=== PATIENT | female | born 1985 | race Caucasian/White ===

== ENCOUNTER 2016-06-20 12:59 | Emergency (ER) | payer BC ==
[2016-06-20 13:17] VITALS: RESP 16; TEMP 97.4
[2016-06-20] MEDS ORDERED: SODIUM CHLORIDE 0.9% 1,000 ML IV ONE (14:12)
[2016-06-20] MEDS ORDERED: KETOROLAC 30 MG/ML 1 ML VIAL IVP STA (14:12)
[2016-06-20] MEDS ORDERED: ONDANSETRON 4 MG/2 ML VIAL IVP STA (14:12)
--- NOTE | 2016-06-20 14:17 | ED ---
Abdominal Pain HPI - General Chief Complaint: Abdominal Pain Stated Complaint: Abd pain Time Seen by Provider: 06/20/16 13:53 Source: patient Mode of arrival: ambulatory Limitations: no limitations - History of Present Illness Initial Comments: This is a 30-year-old female with a history of asthma who presents emergency department for lower abdominal pain. She states it started at approximately 11: 00 this morning. She states that she was taking a shower when all of a sudden it started. She states that it feels like a pressure sensation in her lower pelvis. She denies any dysuria or hematuria however states that she has been having difficulty with urinating. She does admit to some vaginal spotting however no discharge. She also admits to some rectal pain however has not been constipated and has not had a bowel movement today. She admits to some nausea and vomiting as well. No fevers or chills. No cough or shortness of breath. She states that she is due to start her period. Last pressure. Was last month on the . 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 She denies any other complaints. - Related Data Previous Rx's Medication Instructions Recorded Acetaminophen with Codeine 1 tab PO Q4H PRN #15 tab 06/20/16 [Tylenol w/codeine #3] Allergies Allergy/AdvReac Type Severity Reaction Status Date / Time amoxicillin trihydrate Allergy Unknown Verified 06/20/16 14:16 [From Augmentin] potassium clavulanate Allergy Unknown Verified 06/20/16 14:16 [From Augmentin] Review of Systems ROS Statement: Those systems with pertinent positive or pertinent negative responses have been documented in the HPI. ROS Other: All systems not noted in ROS Statement are negative. Past Medical History Past Medical History: Asthma History of Any Multi-Drug Resistant Organisms: MRSA Date of last positivie culture/infection: 2008 MDRO Source:: lt arm Past Surgical History: No Surgical Hx Reported Past Psychological History: No Psychological Hx Reported Smoking Status: Never smoker Past Alcohol Use History: Occasional Past Drug Use History: None Reported General Exam - General Exam Comments Initial Comments: Constitutional: Awake alert appears uncomfortable Head: Normocephalic atraumatic Eyes: no conjunctival injection No scleral icterus EOMI Neck: No JVD Supple Heart: Regular rate rhythm normal S1-S2 no murmurs Lungs: Clear to auscultation bilaterally No wheezing No rales Abdomen: Soft nondistended tenderness and bilateral pelvis which seems to be a little bit more on the right Extremities: Non edematous DP pulses intact Radial pulses intact Neuro: A&Ox3 No focal neurologic deficits Psych: Appropriate mood and affect Limitations: no limitations Course Vital Signs 06/20/16 13:13 Temperature 97.4 F L Pulse Rate 118 H Respiratory 16 Rate Blood Pressure 111/69 O2 Sat by Pulse 100 Oximetry Medical Decision Making - Medical Decision Making There is a 22-year-old came in for pelvic pain. Her pain was much improved after Toradol. Blood work was reviewed and unremarkable. Ultrasound showed a left-sided hemorrhagic ovarian cyst. No signs of torsion. At this time the patient can go home and follow-up with her [employer]EL[employer]. She was provided with Tylenol 3 that she can use as needed. She can also use Motrin or Tylenol. I told her that she could follow-up with her OB. If she has worsening or severe patient is return emergency Department for possible evaluation of torsion. Otherwise routine follow-up with [employer]. All questions were answered. - Lab Data Result diagrams: 06/20/16 14:45 06/20/16 14:45 Lab Results 06/20/16 06/20/16 06/20/16 Range/Units 14:45 14:45 14:45 WBC 13.2 H (3.8-10.6) k/uL RBC 4.54 (3.80-5.40) m/uL Hgb 13.8 (11.4-16.0) gm/dL Hct 42.5 (34.0-46.0) % MCV 93.5 (80.0-100.0) fL MCH 30.4 (25.0-35.0) pg MCHC 32.6 (31.0-37.0) g/dL RDW 12.8 (11.5-15.5) % Plt Count 156 (150-450) k/uL Neutrophils % 92 % Lymphocytes % 5 % Monocytes % 2 % Eosinophils % 0 % Basophils % 0 % Neutrophils # 12.2 H (1.3-7.7) k/uL Lymphocytes # 0.6 L (1.0-4.8) k/uL Monocytes # 0.3 (0-1.0) k/uL Eosinophils # 0.0 (0-0.7) k/uL Basophils # 0.0 (0-0.2) k/uL Sodium 141 (137-145) mmol/L Potassium 4.0 (3.5-5.1) mmol/L Chloride 107 (98-107) mmol/L Carbon Dioxide 24 (22-30) mmol/L Anion Gap 10 mmol/L BUN 9 (7-17) mg/dL Creatinine 0.59 (0.52-1.04) mg/dL Est GFR (MDRD) Af Amer >60 (>60 ml/min/1.73 sqM) Est GFR (MDRD) Non-Af >60 (>60 ml/min/1.73 sqM) Glucose 90 (74-99) mg/dL Calcium 9.1 (8.4-10.2) mg/dL Total Bilirubin 0.8 (0.2-1.3) mg/dL AST 18 (14-36) U/L ALT 33 (9-52) U/L Alkaline Phosphatase 53 (38-126) U/L Total Protein 7.1 (6.3-8.2) g/dL Albumin 4.5 (3.5-5.0) g/dL Lipase 56 (23-300) U/L Urine Color Urine Appearance (Clear) Urine pH (5.0-8.0) Ur Specific [place] (1.001-1.035) Urine Protein (Negative) Urine Glucose (UA) (Negative) Urine Ketones (Negative) Urine Blood (Negative) Urine Nitrate (Negative) Urine Bilirubin (Negative) Urine Urobilinogen (<2.0) mg/dL Ur Leukocyte Esterase (Negative) Urine RBC (0-5) /hpf Urine WBC (0-5) /hpf Ur Squamous Epith Cells (0-4) /hpf Urine Bacteria (None) /hpf Urine Mucus (None) /hpf Urine HCG, Qual Not Detected (Not Detectd) 06/20/16 Range/Units 14:45 WBC (3.8-10.6) k/uL RBC (3.80-5.40) m/uL Hgb (11.4-16.0) gm/dL Hct (34.0-46.0) % MCV (80.0-100.0) fL MCH (25.0-35.0) pg MCHC (31.0-37.0) g/dL RDW (11.5-15.5) % Plt Count (150-450) k/uL Neutrophils % % Lymphocytes % % Monocytes % % Eosinophils % % Basophils % % Neutrophils # (1.3-7.7) k/uL Lymphocytes # (1.0-4.8) k/uL Monocytes # (0-1.0) k/uL Eosinophils # (0-0.7) k/uL Basophils # (0-0.2) k/uL Sodium (137-145) mmol/L Potassium (3.5-5.1) mmol/L Chloride (98-107) mmol/L Carbon Dioxide (22-30) mmol/L Anion Gap mmol/L BUN (7-17) mg/dL Creatinine (0.52-1.04) mg/dL Est GFR (MDRD) Af Amer (>60 ml/min/1.73 sqM) Est GFR (MDRD) Non-Af (>60 ml/min/1.73 sqM) Glucose (74-99) mg/dL Calcium (8.4-10.2) mg/dL Total Bilirubin (0.2-1.3) mg/dL AST (14-36) U/L ALT (9-52) U/L Alkaline Phosphatase (38-126) U/L Total Protein (6.3-8.2) g/dL Albumin (3.5-5.0) g/dL Lipase (23-300) U/L Urine Color Yellow Urine Appearance Cloudy H (Clear) Urine pH 5.5 (5.0-8.0) Ur Specific [place] 1.023 (1.001-1.035) Urine Protein Trace H (Negative) Urine Glucose (UA) Negative (Negative) Urine Ketones 2+ H (Negative) Urine Blood Small H (Negative) Urine Nitrate Negative (Negative) Urine Bilirubin Negative (Negative) Urine Urobilinogen <2.0 (<2.0) mg/dL Ur Leukocyte Esterase Trace H (Negative) Urine RBC 3 (0-5) /hpf Urine WBC 6 H (0-5) /hpf Ur Squamous Epith Cells 4 (0-4) /hpf Urine Bacteria Rare H (None) /hpf Urine Mucus Many H (None) /hpf Urine HCG, Qual (Not Detectd) Disposition Clinical Impression: Ovarian cyst Disposition: HOME SELF-CARE Condition: Stable Instructions: Ovarian Cyst (ED) Prescriptions: Acetaminophen with Codeine [Tylenol w/codeine #3] 1 tab PO Q4H PRN #15 tab PRN Reason: Pain Referrals: Lj Howard MD [Primary Care Provider] - 1-2 days Carolyn Jamil DO [Doctor of Osteopathic Medicine] - 1-2 days
[2016-06-20 15:00] LABS: Basophils % (A) 0 %; CH 31.8; CHCM 34.1; Eosinophils % (A) 0 %; HCT 42.5 % (34.0-46.0); HDW 2.44; HGB 13.8 gm/dL (11.4-16.0); Luc # (Auto) 0.04; Luc % (Auto) 0; Lymphocytes # (A) 0.6 k/uL (1.0-4.8); Lymphocytes % (A) 5 %; MCH 30.4 pg (25.0-35.0); MCHC 32.6 g/dL (31.0-37.0); MCV 93.5 fL (80.0-100.0); Mean Platelet Volume 7.6; Monocytes # (A) 0.3 k/uL (0-1.0); Monocytes % (A) 2 %; Neutrophils # (A) 12.2 k/uL (1.3-7.7); Neutrophils % (A) 92 %; RBC 4.54 m/uL (3.80-5.40); RDW 12.8 % (11.5-15.5); WBC 13.2 k/uL (3.8-10.6); WBC (Perox) 13.46
[2016-06-20 15:04] LABS: Appearance,Urine Cloudy (Clear); Bacteria,Urine Rare /hpf; Bilirubin,Urine Negative (Negative); Glucose,Urine (UA) Negative (Negative); Ketones,Urine 2+ (Negative); Leukocyte Esterase,Urine Trace (Negative); Mucus,Urine Many /hpf; Nitrite,Urine Negative (Negative); PH, Urine 5.5 (5.0-8.0); Particle Count 20890; Protein,Urine Trace (Negative); RBC,Urine 3 /hpf (0-5); Specific Gravity,Urine 1.023 (1.001-1.035); Squamous Epithelial Cell,Urine 4 /hpf (0-4); UA Billing (MACRO vs. MICRO) MICRO; Urobilinogen,Urine <2.0 mg/dL (<2.0); WBC,Urine 6 /hpf (0-5)
[2016-06-20 15:09] LABS: ALT 33 U/L (9-52); AST 18 U/L (14-36); Alkaline Phosphatase 53 U/L (38-126); Anion Gap 10 mmol/L; Blood Urea Nitrogen 9 mg/dL (7-17); Calcium 9.1 mg/dL (8.4-10.2); Carbon Dioxide 24 mmol/L (22-30); Chloride 107 mmol/L (98-107); Glucose 90 mg/dL (74-99); Non-African American GFR(MDRD) >60 (>60 ml/min/1.73 sqM); Sodium 141 mmol/L (137-145); Total Bilirubin 0.8 mg/dL (0.2-1.3); Total Protein 7.1 g/dL (6.3-8.2)
--- NOTE | 2016-06-20 15:44 | US ---
EXAMINATION TYPE: US transvaginal DATE OF EXAM: 06/20/2016 3:21 PM COMPARISON: NONE CLINICAL HISTORY: Pelvic pain and cramping today; patient stated that LMP started today TECHNIQUE: Transvaginal (TV) Date of LMP: 06/20/2016 EXAM MEASUREMENTS: Uterus: 10.0 x 7.1 x 5.3cm Endometrial Stripe: upper right endometrium = 0.6cm and upper left endometrium 0.9cm Right Ovary: 3.2 x 3.0 x 1.9cm Left Ovary: 6.0 x 3.0 x 3.0cm FINDINGS: 1. Uterus: Anteverted; 2. Endometrium: arcuate appearance to upper endometrium; multiple small cysts in endometrium ~ 0.2cm 3. Right Ovary: multiple small follicles 4. Left Ovary: abnormally enlarged ovary with multiple follicles with largest as complex cyst (possi ble involuting hemorrhagic ovarian cyst = 3.5 x 2.5 x 2.4cm) and another simple cyst = 2.5 x 2.3 x 2. 2cm. Spectral, color and waveform Doppler imaging shows good arterial and venous flow within the ovaries ; there is no evidence for ovarian torsion. 5. Bilateral Adnexa: within normal limits 6. Posterior cul-de-sac: within normal limits IMPRESSION: Ovarian torsion is not evident. Small cystic foci within the endometrium are indeterminat e. Possible hemorrhagic cyst left ovary. Follow-up as indicated.
[2016-06-20 16:03] VITALS: BP 101/63; PULSE 84
== END 2016-06-20 16:16 | disposition home or self-care (01) ==
LOC: EC 12:59
DX: N83.202 Unspecified ovarian cyst, left side (principal); Z88.0 Allergy status to penicillin
CPT/HCPCS: 99284; 96361 ×2; 96375; 96374; 36415; 80053; 83690; 85025; 81001; 81025; 93975; 76830; J2405; J1885

== ENCOUNTER → 2016-08-17 | Outpatient (CLI) | payer BC ==
--- NOTE | 2016-08-18 08:21 | US ---
EXAMINATION TYPE: US pelvis complete transvag DATE OF EXAM: 08/17/2016 4:05 PM COMPARISON: Previous study dated 06/20/2016 CLINICAL HISTORY: N83.20 Previous ovarian cysts. TECHNIQUE: Transvaginal (TV) and Transabdominal (TA) Date of LMP: 07/21/2016 EXAM MEASUREMENTS: Uterus: 9.2 x 4.6 x 6.3 cm Endometrial Stripe: 1.6 cm Right Ovary: 2.6 x 2.8 x 3.2 cm Left Ovary: 5.0 x 3.3 x 4.2 cm TECHNOLOGIST IMPRESSION: Left ovary show cyst 2.5 x 2.1 x 2.4 cm lower margin; 2.7 x 2.6 x 2.7 solid structure upper margin, hemorrhagic cyst vs solid, no vascularity seen with color flow 1. Uterus: Anteverted small amount of fluid in lower segment 2. Endometrium: wnl for secretory phase 3. Right Ovary: follicles 4. Left Ovary: pathology as noted in impression 5. Bilateral Adnexa: small amount of free fluid adjacent to left ovary 6. Posterior cul-de-sac: no free fluid The vascularity of the right ovary was not assessed. IMPRESSION: 1. 2.5 CM SIMPLE APPEARING LEFT OVARIAN CYST. 2. PROBABLE HEMORRHAGIC CYST INVOLVING THE LEFT OVARY.
== END | disposition home or self-care (01) ==
LOC: RADUSWWP 15:31
PROVIDERS: ATTEND Obstetrics & Gynecology
DX: N83.202 Unspecified ovarian cyst, left side (principal)
CPT/HCPCS: 76830; 76856

== ENCOUNTER → 2017-03-09 | Outpatient (CLI) | payer BC ==
[2017-03-09 13:29] LABS: CH 31.8; CHCM 32.8; HCT 43.7 % (34.0-46.0); HDW 2.33; HGB 14.5 gm/dL (11.4-16.0); MCH 32.4 pg (25.0-35.0); MCHC 33.3 g/dL (31.0-37.0); MCV 97.3 fL (80.0-100.0); Mean Platelet Volume 6.8; RBC 4.49 m/uL (3.80-5.40); RDW 12.6 % (11.5-15.5); WBC 7.7 k/uL (3.8-10.6)
[2017-03-09 15:34] LABS: Glucose 91 mg/dL (74-99); Non-African American GFR(MDRD) >60 (>60 ml/min/1.73 sqM)
[2017-03-09 18:48] LABS: Treponemal Ab Non-Reactive (Non-Reactive)
== END | disposition home or self-care (01) ==
LOC: LABWHC1 12:53
PROVIDERS: ATTEND Obstetrics & Gynecology
DX: Z34.01 Encounter for supervision of normal first pregnancy, first trimester (principal)
CPT/HCPCS: 36415; 82565; 82947; 84702; 85027; 86762; 86780; 86850; 86900; 86901; 87340; 87390

== ENCOUNTER → 2017-03-14 | Outpatient (CLI) | payer BC | END | disposition home or self-care (01) | LOC: LABWHC1 12:34 | PROVIDERS: ATTEND Obstetrics & Gynecology | DX: Z34.00 Encounter for supervision of normal first pregnancy, unspecified trimester (principal); Z3A.00 Weeks of gestation of pregnancy not specified | CPT/HCPCS: 36415; 84702 ==

== ENCOUNTER → 2017-03-27 | Outpatient (CLI) | payer BC ==
--- NOTE | 2017-03-27 14:41 | US ---
EXAMINATION TYPE: US OB <= 14 wk fetus DATE OF EXAM: 03/27/2017 COMPARISON: NONE CLINICAL HISTORY: F/U to abnormal ultrasound Z36; Vaginal discharge x 2 days; EXAM PERFORMED: Transvaginal (TV) and Transabdominal (TA) EXAM MEASUREMENTS: GESTATIONAL AGE / DATING Physician Established: not established Dates by LMP: (10 weeks/1 day) EDC: 10/20/2017 Dates by First Scan: No previous. This is first scan Dates by Current Scan for: (5 weeks/6 days) EDC: No cardiac activity seen MATERNAL ANATOMY Uterus: 10.0 x 6.2 x 5.5 Right Ovary: 3.4 x 3.2 x 2.2cm TA US Left Ovary: 3.4 x 2.9 x 2.4cm TA US Post CDS / Adnexa: wnl Presence of free fluid: no Presence of corpus luteal cyst: in either ovary as color flow is noted around each ovarian cyst: righ t ovarian cyst = 1.9 x 1.8 x 1.5cm abd left hypoechoic ovarian cyst = 2.1 x 1.9 x 1.5cm Presence of subchorionic bleed: no GESTATION / SURVEY CRL: 0.3cm (5 weeks/6 days) Yolk Sac (normal less than 6mm): 2.5mm and appears solid Heart Rate: none detected by color flow, M Mode or Power Doppler IUP: non viable IUP Date of LMP: 01/13/2017 Beta HcG (if available): NA Centrally in the uterus there is oval anechoic area measuring approximately 12 x 18 x 13 mm felt to r eflect gestational sac. There is 3 mm round homogeneous structure felt to reflect abnormal yolk sac. pole is identified. heart tones cannot be detected despite several attempts. No free flui d is seen in pelvis. Both ovaries are identified. There is 1.9 cm simple appearing cyst in right ovary seen. There is 2.1 cm simple appearing cyst in left ovary identified. IMPRESSION: Findings are suspicious for ongoing spontaneous given patient's last known menstrual period however too early to visualize live intrauterine is in differential based on size of pole. Ectopic is not entirely excluded. Serial beta hCG and ultrasound follow-up is advised .
== END | disposition home or self-care (01) ==
LOC: RADUSWWP 13:33
PROVIDERS: ATTEND Obstetrics & Gynecology
DX: Z34.00 Encounter for supervision of normal first pregnancy, unspecified trimester (principal); Z3A.00 Weeks of gestation of pregnancy not specified
CPT/HCPCS: 36415; 76801; 76817; 84702

== ENCOUNTER 2018-01-27 02:25 | Emergency (ER) | payer BC ==
[2018-01-27 02:32] VITALS: TEMP 97.8
[2018-01-27 03:14] LABS: Appearance,Urine Cloudy (Clear); Bacteria,Urine Few /hpf; Bilirubin,Urine Negative (Negative); Blood,Urine Trace (Negative); Color,Urine Yellow; Glucose,Urine (UA) Negative (Negative); Ketones,Urine Negative (Negative); Leukocyte Esterase,Urine Small (Negative); Mucus,Urine Few /hpf; Nitrite,Urine Negative (Negative); Protein,Urine Negative (Negative); RBC,Urine 1 /hpf (0-5); Specific Gravity,Urine 1.016 (1.001-1.035); Squamous Epithelial Cell,Urine 5 /hpf (0-4); Urobilinogen,Urine <2.0 mg/dL (<2.0); WBC,Urine 4 /hpf (0-5)
--- NOTE | 2018-01-27 03:21 | ED ---
General Adult HPI - General Source: patient, RN notes reviewed Mode of arrival: ambulatory Limitations: no limitations <Arcadio Crisostomo P - Last Filed: 01/27/18 03:40> <Savana Pereira P - Last Filed: 01/27/18 06:56> - General Chief complaint: Urogenital Stated complaint: UTI Time Seen by Provider: 01/27/18 02:36 - History of Present Illness Initial comments: 32-year-old female presents to the emergency department for a chief complaint of dysuria and urinary frequency 2 weeks. Patient just found out she was 2 days ago. Patient describes the pain as a burning sensation when urinating. Patient states symptoms started 2 weeks ago when she saw her primary care provider. She states she was put on Macrobid which did improve her symptoms for about 4 days. However during the last 3 days of Macrobid symptoms returned. She states she finished the Macrobid about one week ago and symptoms have been worsening over the past 2 days. Patient denies any fevers or chills at home. Patient denies any back pain. Patient has had multiple urinary tract infections in the past. Patient denies any concern for sexual transmitted diseases or vaginal discharge. Patient denies any pelvic pain. Patient denies any vaginal bleeding. Patient has no other complaints at this time including shortness of breath, chest pain, abdominal pain, nausea or vomiting, headache, or visual changes. (Arcadio Crisostomo) - Related Data Home Medications Medication Instructions Recorded Confirmed Abg-Juwg-Ohmql Acid 1 cap PO DAILY 04/01/17 04/01/17 [-U Capsule (formulary)] Nitrofurantoin Monohyd/M-Cryst 100 mg PO Q12HR 01/27/18 01/27/18 [Macrobid] Allergies Allergy/AdvReac Type Severity Reaction Status Date / Time amoxicillin trihydrate Allergy SYNCOPE Verified 01/27/18 02:32 [From Augmentin] potassium clavulanate Allergy SYNCOPE Verified 01/27/18 02:32 [From Augmentin] Review of Systems ROS Other: All systems not noted in ROS Statement are negative. <Arcadio Crisostomo P - Last Filed: 01/27/18 03:40> ROS Other: All systems not noted in ROS Statement are negative. <Savana Pereira P - Last Filed: 01/27/18 06:56> ROS Statement: Those systems with pertinent positive or pertinent negative responses have been documented in the HPI. Past Medical History Past Medical History: Asthma History of Any Multi-Drug Resistant Organisms: MRSA Date of last positivie culture/infection: 2008 MDRO Source:: lt arm Past Surgical History: No Surgical Hx Reported Past Psychological History: No Psychological Hx Reported Smoking Status: Never smoker Past Alcohol Use History: None Reported, Occasional Past Drug Use History: None Reported <Arcadio Crisostomo P - Last Filed: 01/27/18 03:40> General Exam Limitations: no limitations General appearance: alert, in no apparent distress Head exam: Present: atraumatic, normocephalic, normal inspection Eye exam: Present: normal appearance. Absent: scleral icterus, conjunctival injection ENT exam: Present: normal exam, mucous membranes moist Neck exam: Present: normal inspection, full ROM. Absent: tenderness, meningismus, lymphadenopathy Respiratory exam: Present: normal lung sounds bilaterally. Absent: respiratory distress, wheezes, rales, rhonchi, stridor Cardiovascular Exam: Present: regular rate, normal rhythm, normal heart sounds. Absent: systolic murmur, diastolic murmur, rubs, gallop, clicks GI/Abdominal exam: Present: soft, normal bowel sounds. Absent: distended, tenderness, guarding, rebound, rigid Back exam: Absent: CVA tenderness (R), CVA tenderness (L) Neurological exam: Present: alert, oriented X3, CN II-XII intact Psychiatric exam: Present: normal affect, normal mood <Arcadio Crisostomo P - Last Filed: 01/27/18 03:40> Vital Signs 01/27/18 01/27/18 02:27 03:52 Temperature 97.8 F Pulse Rate 85 75 Respiratory 16 18 Rate Blood Pressure 138/94 123/67 O2 Sat by Pulse 99 98 Oximetry Medical Decision Making <Arcadio Crisostomo P - Last Filed: 01/27/18 03:40> <Savana Pereira P - Last Filed: 01/27/18 06:56> - Medical Decision Making 32-year-old female presents to the emergency department for a chief complaint of dysuria and urinary frequency 2 weeks. Patient states she found out she was 2 days ago. She states she had 3 positive tests at home and a negative test at work. Patient was previously on Macrobid but symptoms continued. Patient saw her primary care provider today who did not want to switch her antibiotic until they had the urine culture back. Patient states that she came to the emergency department for an antibiotic because her symptoms are consistent with past urinary tract infections. Patient denies fevers or chills. Patient denies abdominal pain. Patient denies any vaginal bleeding or discharge. Vitals within normal limits here in the emergency department and patient is afebrile. I did offer pelvic exam as sexually transmitted diseases can present as dysuria. Patient refused and states she gets checked for STDs every year and has one monogamous partner. On exam patient has no abdominal tenderness including in the pelvic area. She is sitting up in bed alert and cooperative. Urinalysis does not show evidence of infection. Urine will be cultured. Patient did have a negative hCG here. Patient agreed to a quantitative hCG and will call for results. Patient agrees. 6 symptoms of cystitis. Educated to decrease caffeine intake as well as decrease spicy food intake. She will increase fluid intake. Discussed receiving culture results before antibiotics. She will follow up with primary care in 1-2 days and will return to the emergency Department if she has any worsening symptoms or develops fevers. (Arcadio Crisostomo) I personally saw and evaluated the patient, I discussed with her urinalysis is not consistent with urinary tract infection, however a urine culture was obtained. I recommended the patient avoid foods that can cause cystitis including spicy foods or caffeine. I also recommended that the patient drink plenty of fluid to make sure that dehydration is contributing to her symptoms. In addition her urine test was negative. I advised the patient that we can obtain a blood sample for beta-hCG, however I don't feel there is any indication her staying in the emergency department awaiting the results as it will not change her disposition. Patient called the emergency department back approximately 90 minutes after discharge, I discussed with her that her beta hCG was mildly elevated, however this needs to be trended by her primary care or OB to ensure that it is raising appropriately in early . Patient expressed understanding. (Savana Pereira) - Lab Data Lab Results 01/27/18 01/27/18 01/27/18 Range/Units 03:00 03:00 03:48 HCG, Quant 8.1 mIU/mL Urine Color Yellow Urine Appearance Cloudy H (Clear) Urine pH 5.0 (5.0-8.0) Ur Specific [place] 1.016 (1.001-1.035) Urine Protein Negative (Negative) Urine Glucose (UA) Negative (Negative) Urine Ketones Negative (Negative) Urine Blood Trace H (Negative) Urine Nitrite Negative (Negative) Urine Bilirubin Negative (Negative) Urine Urobilinogen <2.0 (<2.0) mg/dL Ur Leukocyte Esterase Small H (Negative) Urine RBC 1 (0-5) /hpf Urine WBC 4 (0-5) /hpf Ur Squamous Epith Cells 5 H (0-4) /hpf Urine Bacteria Few H (None) /hpf Urine Mucus Few H (None) /hpf Urine HCG, Qual Not Detected (Not Detectd) Disposition Is patient prescribed a controlled substance at d/c from ED?: No Time of Disposition: 03:39 <Arcadio Crisostomo P - Last Filed: 01/27/18 03:40> <Savana Pereira P - Last Filed: 01/27/18 06:56> Clinical Impression: Cystitis Disposition: HOME SELF-CARE Condition: Good Instructions: Urinary Tract Infection in Women (ED), Interstitial Cystitis (ED) Additional Instructions: Please await culture results of urine. Please follow-up with primary care in 1- 2 days. Return to the emergency department if you have any worsening symptoms, abdominal pain, or fevers Referrals: Artem Khoury MD [STAFF PHYSICIAN] - 1-2 days
[2018-01-27 03:53] VITALS: BP 123/67; PULSE 75; RESP 18
== END 2018-01-27 03:53 | disposition home or self-care (01) ==
LOC: EC 02:25
DX: N30.90 Cystitis, unspecified without hematuria (principal); Z86.14 Personal history of Methicillin resistant Staphylococcus aureus infection; Z53.29 Procedure and treatment not carried out because of patient's decision for other reasons; Z88.0 Allergy status to penicillin; Z87.440 Personal history of urinary (tract) infections
CPT/HCPCS: 36415; 81001; 81025; 84702; 87086; 99283

== ENCOUNTER 2018-01-29 17:28 | Emergency (ER) | payer BC ==
[2018-01-29] MEDS ORDERED: Rhogam IMMUNE GLOBULIN 1,500 UNIT/1 ML IM ONE (18:01)
--- NOTE | 2018-01-29 18:31 | ED ---
Female Urogenital HPI - General Chief complaint: Vaginal Bleeding Stated complaint: Poss miscarriage Time Seen by Provider: 01/29/18 17:46 Source: patient, RN notes reviewed Mode of arrival: ambulatory Limitations: no limitations - History of Present Illness Initial comments: This is a 32-year-old G2PO female who presents to the emergency department with chief complaint of possible miscarriage. She states that last she had a positive test. She states that her blood type is A-. Patient states that she was seen here yesterday and was diagnosed with a urinary tract infection. A serum hCG was drawn and it was at 8.1. Patient states that last evening she began to have vaginal bleeding. She states that today the vaginal bleeding has increased and she is passing clots. She also admits to lower abdominal cramping. Patient states that she established care with Dr. Wren last Sunday after finding out she was . She states that she contacted Dr. Wren this evening and was told to come to the emergency department for a RhoGAM shot as well as another serum hCG level. Patient does have an appointment scheduled for 8 AM tomorrow morning [address] Dr. Wren. Patient has not yet had an ultrasound performed. She denies any recent fevers or chills, chest pain or shortness of breath, nausea or vomiting, diarrhea or constipation. LMP was 12/22/2017. - Related Data Home Medications Medication Instructions Recorded Confirmed Voi-Ujyi-Lgmyr Acid 1 cap PO HS 04/01/17 01/29/18 [-U Capsule (formulary)] Ibuprofen [Motrin Ib] 400 mg PO Q6HR PRN 01/29/18 01/29/18 Allergies Allergy/AdvReac Type Severity Reaction Status Date / Time amoxicillin trihydrate AdvReac SYNCOPE Verified 01/29/18 17:52 [From Augmentin] potassium clavulanate AdvReac SYNCOPE Verified 01/29/18 17:52 [From Augmentin] Review of Systems ROS Statement: Those systems with pertinent positive or pertinent negative responses have been documented in the HPI. ROS Other: All systems not noted in ROS Statement are negative. Past Medical History Past Medical History: Asthma History of Any Multi-Drug Resistant Organisms: MRSA Date of last positivie culture/infection: 2008 MDRO Source:: lt arm Past Surgical History: No Surgical Hx Reported Past Psychological History: No Psychological Hx Reported Smoking Status: Never smoker Past Alcohol Use History: None Reported Past Drug Use History: None Reported General Exam - General Exam Comments Initial Comments: General: Awake and alert, well-developed; in no apparent distress. HEENT: Head atraumatic, normocephalic. Pupils are equal, round and reactive to light. Extraocular movements intact. Oropharynx moist without erythema or exudate. Neck: Supple. Normal ROM. Cardiovascular: Regular rate and rhythm. No murmurs, rubs or gallops. Chest symmetrical. Respiratory: Lungs clear to auscultation bilaterally. No wheezes, rales or rhonchi. Normal respiratory effort with no use of accessory muscles. Abdomen: Soft, non-tender, non-distended. No rigidity, rebound or guarding. Normal bowel sounds in all 4 quadrants. Musculoskeletal: Normal ROM, no tenderness bilateral upper and lower extremities. Ambulating normally. Skin: Wilder, warm and dry without rashes or lesions. Neurological: Alert and oriented x3. CN II-XII grossly intact. Speech is fluent and answers are appropriate. No focal neuro deficits. Psychiatric: Normal mood and affect. No overt signs of depression or anxiety noted. Limitations: no limitations Course Vital Signs 01/29/18 01/29/18 17:37 19:44 Temperature 98.2 F 98.8 F Pulse Rate 83 85 Respiratory 18 16 Rate Blood Pressure 120/78 112/62 O2 Sat by Pulse 99 98 Oximetry Medical Decision Making - Medical Decision Making This is a 32-year-old female who presents to the emergency department with chief complaint of vaginal bleeding. Patient reports a positive test last . She states that last evening she began to have vaginal bleeding and today has been passing clots and having lower abdominal cramping. Patient states that she called Dr. Wren's office and it was recommended that she come to the emergency department for a repeat serum hCG and Rhogam as patient does have A- blood type. CBC and CMP are unremarkable. Serum hcg <2.4. Decreased from 8.1 yesterday. Patient received Rhogam here in the ER. U/S revealed no evidence of IUP or ectopic . Patient is to follow up with Dr. Wren tomorrow as scheduled. She is in agreement and voices understanding. Her vital signs have been stable and she is in no acute distress. Patient will be discharged home at this time. All questions answered. - Lab Data Result diagrams: 01/29/18 18:37 01/29/18 18:37 Lab Results 01/29/18 01/29/18 01/29/18 Range/Units 18:37 18:37 18:37 WBC 10.4 (3.8-10.6) k/uL RBC 4.73 (3.80-5.40) m/uL Hgb 14.9 (11.4-16.0) gm/dL Hct 44.8 (34.0-46.0) % MCV 94.8 (80.0-100.0) fL MCH 31.5 (25.0-35.0) pg MCHC 33.3 (31.0-37.0) g/dL RDW 12.8 (11.5-15.5) % Plt Count 186 (150-450) k/uL Neutrophils % 73 % Lymphocytes % 19 % Monocytes % 5 % Eosinophils % 2 % Basophils % 0 % Neutrophils # 7.5 (1.3-7.7) k/uL Lymphocytes # 1.9 (1.0-4.8) k/uL Monocytes # 0.5 (0-1.0) k/uL Eosinophils # 0.2 (0-0.7) k/uL Basophils # 0.0 (0-0.2) k/uL Sodium 143 (137-145) mmol/L Potassium 3.9 (3.5-5.1) mmol/L Chloride 106 (98-107) mmol/L Carbon Dioxide 25 (22-30) mmol/L Anion Gap 12 mmol/L BUN 9 (7-17) mg/dL Creatinine 0.56 (0.52-1.04) mg/dL Est GFR (CKD-EPI)AfAm >90 (>60 ml/min/1.73 sqM) Est GFR (CKD-EPI)NonAf >90 (>60 ml/min/1.73 sqM) Glucose 81 (74-99) mg/dL Calcium 9.6 (8.4-10.2) mg/dL Total Bilirubin 0.4 (0.2-1.3) mg/dL AST 18 (14-36) U/L ALT 22 (9-52) U/L Alkaline Phosphatase 40 (38-126) U/L Total Protein 7.5 (6.3-8.2) g/dL Albumin 4.6 (3.5-5.0) g/dL HCG, Quant <2.4 mIU/mL Blood Type A Negative Blood Type Recheck No Antibody Screen NEGATIVE Spec Expiration Date 02/01/2018 4997 - Radiology Data Radiology results: report reviewed Transvaginal ultrasound impression: No intrauterine at this time. Current differential considerations in the setting of a positive test could normal early , failed , and nonvisualized ectopic. Disposition Clinical Impression: Miscarriage Disposition: HOME SELF-CARE Condition: Good Instructions: Miscarriage (ED) Additional Instructions: Please follow up with Dr. Wren tomorrow morning as scheduled. Please follow up with primary care provider within 1-2 days. Return to emergency department if symptoms should worsen or any concerns arise. Is patient prescribed a controlled substance at d/c from ED?: No Referrals: None,Stated [Primary Care Provider] - 1-2 days Time of Disposition: 20:53
[2018-01-29 19:18] LABS: Basophils % (A) 0 %; Eosinophils # (A) 0.2 k/uL (0-0.7); Eosinophils % (A) 2 %; HCT 44.8 % (34.0-46.0); HGB 14.9 gm/dL (11.4-16.0); Lymphocytes # (A) 1.9 k/uL (1.0-4.8); Lymphocytes % (A) 19 %; MCH 31.5 pg (25.0-35.0); MCHC 33.3 g/dL (31.0-37.0); MCV 94.8 fL (80.0-100.0); Mean Platelet Volume 7.1; Monocytes # (A) 0.5 k/uL (0-1.0); Monocytes % (A) 5 %; Neutrophils # (A) 7.5 k/uL (1.3-7.7); Neutrophils % (A) 73 %; Platelet Count 186 k/uL (150-450); RBC 4.73 m/uL (3.80-5.40); RDW 12.8 % (11.5-15.5); WBC 10.4 k/uL (3.8-10.6)
[2018-01-29 19:29] LABS: ALT 22 U/L (9-52); AST 18 U/L (14-36); Albumin 4.6 g/dL (3.5-5.0); Alkaline Phosphatase 40 U/L (38-126); Anion Gap 12 mmol/L; Blood Urea Nitrogen 9 mg/dL (7-17); Calcium 9.6 mg/dL (8.4-10.2); Carbon Dioxide 25 mmol/L (22-30); Chloride 106 mmol/L (98-107); Glucose 81 mg/dL (74-99); Potassium 3.9 mmol/L (3.5-5.1); Sodium 143 mmol/L (137-145); Total Bilirubin 0.4 mg/dL (0.2-1.3); Total Protein 7.5 g/dL (6.3-8.2)
[2018-01-29 19:44] LABS: HCG,Quantitative Serum <2.4 mIU/mL
[2018-01-29 19:45] VITALS: RESP 16
--- NOTE | 2018-01-29 20:49 | US ---
EXAMINATION TYPE: Ultrasound OB <= 14 weeks transvaginal DATE OF EXAM: 09/04/17 COMPARISON: NONE CLINICAL HISTORY: 32-year-old female vaginal bleeding. Heavy bleeding EXAM PERFORMED: Transvaginal (TV) and Transabdominal (TA) FINDINGS: EXAM MEASUREMENTS: GESTATIONAL AGE / DATING Physician Established: Not yet established Dates by LMP: (5 weeks/3 days) EDC: 09/28/2018 Dates by First Scan: No previous this is first scan Dates by Current Scan for: No IUP seen at this time MATERNAL ANATOMY Uterus: 8.7 x 4.6 x 5.6 cm Endometrial stripe: 1.2 mm Right Ovary: 3.5 x 2.4 x 2.6 cm with follicular change. Left Ovary: 3.9 x 3.0 x 2.8 cm with a 1.7 cm hypoechoic lesion within, possible hemorrhagic cyst or c orpus luteum. Post CDS / Adnexa: wnl Presence of free fluid: no Presence of corpus luteal cyst: possible left ovary Presence of subchorionic bleed: no GESTATION / SURVEY IUP: No IUP seen at this time Beta HcG (if available): Not available at this time No IUP seen at this time. Hypoechoic area left ovary measuring 1.7 x 1.3 x 1.2 cm. IMPRESSION: No intrauterine seen at this time. Correlate with beta hCG values. A beta-hCG of 2000 would be the threshold for visualization of an intrauterine on transvaginal scanning. Current di fferential considerations in the setting of a positive test include normal early , failed , and nonvisualized ectopic. Follow-up ultrasound to ensure the appearance of a norm al .
[2018-01-29 21:08] VITALS: BP 115/70; PULSE 72; TEMP 98.2
== END 2018-01-29 21:12 | disposition home or self-care (01) ==
LOC: EC 17:28
DX: O03.9 Complete or unspecified spontaneous abortion without complication (principal); Z86.14 Personal history of Methicillin resistant Staphylococcus aureus infection; Z88.0 Allergy status to penicillin
CPT/HCPCS: 36415; 86900; 86901; 80053; 85025; 86850; 84702; 76801; 76817; 99284; 96372; J2791

== ENCOUNTER → 2018-08-12 | Outpatient (CLI) | payer BC ==
--- NOTE | 2018-08-12 10:53 | XR ---
EXAMINATION TYPE: XR IVP DATE OF EXAM: 08/12/2018 COMPARISON: NONE HISTORY: Z87.440 Personal history of urinary (tract) infect TECHNIQUE: Following intravenous administration of KXP324/100cc , multiple spot images are obtained. The preliminary film of the abdomen reveals no significant abnormality. No definite nephrolithiasis i s seen. Following intravenous administration of contrast material, sequential films of the abdomen were obtai aden. There is prompt and symmetrical excretion of the contrast by both kidneys which demonstrate nor mal size and configuration. The collecting systems and visualized portions of the ureters reveal no abnormality. There is no mass or obstruction visualized. There is gradual accumulation of contrast material in the urinary bladder showing no gross abnormality. The post-voiding film shows minimal re sidual contrast in the collecting systems and urinary bladder. IMPRESSION: Essentially normal IVP , no significant finding is seen to account for patient's clinical symptoms
== END | disposition home or self-care (01) ==
LOC: RADFLMAIN 08:46
PROVIDERS: ATTEND Family Medicine
DX: Z09 Encounter for follow-up examination after completed treatment for conditions other than malignant neoplasm (principal); Z87.440 Personal history of urinary (tract) infections
CPT/HCPCS: 74400; Q9967

== ENCOUNTER 2018-12-01 22:20 | Emergency (ER) | payer BC ==
[2018-12-01] MEDS ORDERED: ACETAMINOPHEN TAB 500 MG TAB PO STA (22:50)
[2018-12-01] MEDS ORDERED: IBUPROFEN 600 MG TAB PO STA (22:50)
[2018-12-01 23:48] LABS: Appearance,Urine Clear (Clear); Bilirubin,Urine Negative (Negative); Blood,Urine Negative (Negative); Color,Urine Light Yellow; Glucose,Urine (UA) Negative (Negative); Ketones,Urine Negative (Negative); Leukocyte Esterase,Urine Negative (Negative); Nitrite,Urine Negative (Negative); Protein,Urine Negative (Negative); Specific Gravity,Urine 1.003 (1.001-1.035); Urobilinogen,Urine <2.0 mg/dL (<2.0)
[2018-12-01] MEDS: SODIUM CHLORIDE 0.9% 500 ML 500 ML IV SCH (23:53)
[2018-12-02 00:07] LABS: African American GFR (CKD) >90 (>60 ml/min/1.73 sqM); Albumin 4.1 g/dL (3.5-5.0); Anion Gap 11 mmol/L; Blood Urea Nitrogen 5 mg/dL (7-17); Calcium 8.6 mg/dL (8.4-10.2); Carbon Dioxide 22 mmol/L (22-30); Chloride 106 mmol/L (98-107); Glucose 101 mg/dL (74-99); Sodium 139 mmol/L (137-145); Total Bilirubin 0.6 mg/dL (0.2-1.3); Total Protein 6.8 g/dL (6.3-8.2)
[2018-12-02 00:10] LABS: HCT 40.5 % (34.0-46.0); HGB 13.6 gm/dL (11.4-16.0); MCH 30.7 pg (25.0-35.0); MCHC 33.7 g/dL (31.0-37.0); MCV 91.1 fL (80.0-100.0); Mean Platelet Volume 7.7; RBC 4.44 m/uL (3.80-5.40); RDW 13.7 % (11.5-15.5); WBC 4.7 k/uL (3.8-10.6)
[2018-12-02 00:14] LABS: ALT 17 U/L (9-52); AST 30 U/L (14-36); Alkaline Phosphatase 48 U/L (38-126); Potassium 3.6 mmol/L (3.5-5.1)
[2018-12-02 00:48] LABS: Band Neutrophils % 1 %; Eosinophils # (M) 0.38 k/uL (0-0.7); Lymphocytes # (M) 1.41 k/uL (1.0-4.8); Monocytes # (M) 0.19 k/uL (0-1.0); Neutrophils % (M) 57 %; Nucleated Red Blood Cells 0 /100 WBC (0-0); Total Cells Counted 100
[2018-12-02 00:49] LABS: Platelet Count 93 k/uL (150-450)
[2018-12-02] MEDS ORDERED: ACETAMINOPHEN ORAL SUSP 160 MG/5 ML CUP PO ONE (00:54)
[2018-12-02] MEDS ORDERED: IBUPROFEN ORAL SUSP 100 MG/5 ML CUP PO ONE (00:55)
[2018-12-02] MEDS: SODIUM CHLORIDE 0.9% 500 ML 500 ML IV SCH (01:28)
--- NOTE | 2018-12-02 01:40 | XR ---
EXAM: XR Chest, 2 Views CLINICAL HISTORY: ITS.REASON XR Reason: cough, sepsis TECHNIQUE: Frontal and lateral views of the chest. COMPARISON: No relevant prior studies available. FINDINGS: Lungs: Unremarkable. The lungs are clear. Pleural space: Unremarkable. No pneumothorax. Heart: Unremarkable. No cardiomegaly. Mediastinum: Unremarkable. Bones/joints: Unremarkable. IMPRESSION: Normal chest x-rays.
--- NOTE | 2018-12-02 02:00 | ED ---
Fever HPI - General Chief Complaint: Fever Stated Complaint: UTI/Fever Time Seen by Provider: 12/01/18 22:49 Source: patient Mode of arrival: ambulatory Limitations: no limitations - History of Present Illness Initial Comments: Khadra is a 33-year-old female presents the emergency department today for evaluation of fever, cough and dysuria. Patient reports approximately 3 weeks ago she developed dysuria, hematuria and urinary frequency. She had a urinalysis which was consistent with urinary tract infection she was prescribed Keflex however her urine was resistant to this she was then sent prescribed Macrobid and then after him. Despite being compliant with all of the medications patient reports she continues to have dysuria. She reports that on repeat urinalysis she had blood in her urine but no signs of infection nitrite and leukocyte negative. Patient does work as a nurse. Patient reports she's been making attempts to stay very hydrated to decrease her dysuria. She also reports that over the same 2-3 weeks. She has had a nonproductive cough, patient reports she's been treated for pneumonia multiple times and is concerned with the fever and the cough she may of develop pneumonia. She describes her cough is nonproductive, constant every day. Patient does admit to us history of seasonal ALLERGY she is not on any medications for this and she does have some runny nose and postnasal drip. - Related Data Home Medications Medication Instructions Recorded Confirmed Btp-Fxnr-Lclqu Acid 1 cap PO HS 04/01/17 12/01/18 [-U Capsule (formulary)] Sulfamethox-Tmp 800-160Mg [Bactrim 1 tab PO BID 12/01/18 12/01/18 DS 800-160 mg] Allergies Allergy/AdvReac Type Severity Reaction Status Date / Time amoxicillin trihydrate Allergy Rash/Hives Verified 12/01/18 23:35 [From Augmentin] potassium clavulanate Allergy Rash/Hives Verified 12/01/18 23:35 [From Augmentin] Review of Systems ROS Statement: Those systems with pertinent positive or pertinent negative responses have been documented in the HPI. ROS Other: All systems not noted in ROS Statement are negative. Past Medical History Past Medical History: Asthma History of Any Multi-Drug Resistant Organisms: MRSA Date of last positivie culture/infection: 2008 MDRO Source:: lt arm Past Surgical History: No Surgical Hx Reported Past Psychological History: No Psychological Hx Reported Smoking Status: Never smoker Past Alcohol Use History: None Reported Past Drug Use History: None Reported General Exam - General Exam Comments Initial Comments: Physical Exam GENERAL: Patient is well-developed and well-nourished. Patient is nontoxic and well- hydrated and is in no distress. HENT: Normocephalic, Atraumatic. EYES: PERRL, EOMI PULMONARY: Unlabored respirations. No audible rales rhonchi or wheezing was noted. CARDIOVASCULAR: There is a regular rate and rhythm without any murmurs gallops or rubs. ABDOMEN: Soft and nontender with normal bowel sounds. SKIN: Skin is clear with no lesions or rashes and otherwise unremarkable. : Deferred NEUROLOGIC: Patient is alert and oriented x3. Moving all extremities spontaneously MUSCULOSKELETAL: Normal extremities with adequate strength and full range of motion. No lower extremity swelling or edema. No calf tenderness. PSYCHIATRIC: Normal psychiatric evaluation. Limitations: no limitations Course Vital Signs 12/01/18 12/02/18 22:42 02:38 Temperature 101.0 F H 98.1 F Pulse Rate 118 H 109 H Respiratory 16 19 Rate Blood Pressure 131/82 103/63 O2 Sat by Pulse 98 97 Oximetry Medical Decision Making - Medical Decision Making The patient was seen and evaluated, history is obtained from the patient Patient with recurrent UTIs experiencing dysuria and fever A sepsis workup was ordered In addition the patient has a nonproductive cough, chest x-ray and influenza swabs ordered Labs and imaging were completely unremarkable, patient had no leukocytosis, no signs urinary tract infection no signs of pneumonia. Discussed with patient the probability that she suffering from a viral illness. I did encourage her to continue to stay hydrated, take Tylenol and Motrin as needed for fever and follow up with urology as scheduled. All questions pertaining care were answered return parameters were discussed the patient was discharged home in stable condition. - Lab Data Result diagrams: 12/01/18 23:26 12/01/18 23:26 Lab Results 12/01/18 12/01/18 12/01/18 Range/Units 23:26 23:26 23:26 WBC 4.7 (3.8-10.6) k/uL RBC 4.44 (3.80-5.40) m/uL Hgb 13.6 (11.4-16.0) gm/dL Hct 40.5 (34.0-46.0) % MCV 91.1 (80.0-100.0) fL MCH 30.7 (25.0-35.0) pg MCHC 33.7 (31.0-37.0) g/dL RDW 13.7 (11.5-15.5) % Plt Count 93 L (150-450) k/uL Neutrophils % (Manual) 57 % Band Neutrophils % 1 % Lymphocytes % (Manual) 30 % Monocytes % (Manual) 4 % Eosinophils % (Manual) 8 % Neutrophils # (Manual) 2.70 (1.3-7.7) k/uL Lymphocytes # (Manual) 1.41 (1.0-4.8) k/uL Monocytes # (Manual) 0.19 (0-1.0) k/uL Eosinophils # (Manual) 0.38 (0-0.7) k/uL Nucleated RBCs 0 (0-0) /100 WBC Manual Slide Review Performed RBC Morphology Normal Sodium 139 (137-145) mmol/L Potassium 3.6 (3.5-5.1) mmol/L Chloride 106 (98-107) mmol/L Carbon Dioxide 22 (22-30) mmol/L Anion Gap 11 mmol/L BUN 5 L (7-17) mg/dL Creatinine 0.57 (0.52-1.04) mg/dL Est GFR (CKD-EPI)AfAm >90 (>60 ml/min/1.73 sqM) Est GFR (CKD-EPI)NonAf >90 (>60 ml/min/1.73 sqM) Glucose 101 H (74-99) mg/dL Plasma Lactic Acid Adama 1.1 (0.7-2.0) mmol/L Calcium 8.6 (8.4-10.2) mg/dL Total Bilirubin 0.6 (0.2-1.3) mg/dL AST 30 (14-36) U/L ALT 17 (9-52) U/L Alkaline Phosphatase 48 (38-126) U/L Total Protein 6.8 (6.3-8.2) g/dL Albumin 4.1 (3.5-5.0) g/dL Urine Color Urine Appearance (Clear) Urine pH (5.0-8.0) Ur Specific [place] (1.001-1.035) Urine Protein (Negative) Urine Glucose (UA) (Negative) Urine Ketones (Negative) Urine Blood (Negative) Urine Nitrite (Negative) Urine Bilirubin (Negative) Urine Urobilinogen (<2.0) mg/dL Ur Leukocyte Esterase (Negative) Urine HCG, Qual (Not Detectd) Influenza Type A RNA (Not Detectd) Influenza Type B (PCR) (Not Detectd) 12/01/18 12/01/18 12/02/18 Range/Units 23:26 23:26 00:40 WBC (3.8-10.6) k/uL RBC (3.80-5.40) m/uL Hgb (11.4-16.0) gm/dL Hct (34.0-46.0) % MCV (80.0-100.0) fL MCH (25.0-35.0) pg MCHC (31.0-37.0) g/dL RDW (11.5-15.5) % Plt Count (150-450) k/uL Neutrophils % (Manual) % Band Neutrophils % % Lymphocytes % (Manual) % Monocytes % (Manual) % Eosinophils % (Manual) % Neutrophils # (Manual) (1.3-7.7) k/uL Lymphocytes # (Manual) (1.0-4.8) k/uL Monocytes # (Manual) (0-1.0) k/uL Eosinophils # (Manual) (0-0.7) k/uL Nucleated RBCs (0-0) /100 WBC Manual Slide Review RBC Morphology Sodium (137-145) mmol/L Potassium (3.5-5.1) mmol/L Chloride (98-107) mmol/L Carbon Dioxide (22-30) mmol/L Anion Gap mmol/L BUN (7-17) mg/dL Creatinine (0.52-1.04) mg/dL Est GFR (CKD-EPI)AfAm (>60 ml/min/1.73 sqM) Est GFR (CKD-EPI)NonAf (>60 ml/min/1.73 sqM) Glucose (74-99) mg/dL Plasma Lactic Acid Adama (0.7-2.0) mmol/L Calcium (8.4-10.2) mg/dL Total Bilirubin (0.2-1.3) mg/dL AST (14-36) U/L ALT (9-52) U/L Alkaline Phosphatase (38-126) U/L Total Protein (6.3-8.2) g/dL Albumin (3.5-5.0) g/dL Urine Color Light Yellow Urine Appearance Clear (Clear) Urine pH 5.0 (5.0-8.0) Ur Specific [place] 1.003 (1.001-1.035) Urine Protein Negative (Negative) Urine Glucose (UA) Negative (Negative) Urine Ketones Negative (Negative) Urine Blood Negative (Negative) Urine Nitrite Negative (Negative) Urine Bilirubin Negative (Negative) Urine Urobilinogen <2.0 (<2.0) mg/dL Ur Leukocyte Esterase Negative (Negative) Urine HCG, Qual Not Detected (Not Detectd) Influenza Type A RNA Not Detected (Not Detectd) Influenza Type B (PCR) Not Detected (Not Detectd) Disposition Clinical Impression: Dysuria, Fever Disposition: HOME SELF-CARE Condition: Stable Instructions (If sedation given, give patient instructions): Fever in Adults (ED) Is patient prescribed a controlled substance at d/c from ED?: No Referrals: Kavita Fong MD [Primary Care Provider] - 1-2 days
[2018-12-02 02:39] VITALS: BP 103/63; PULSE 109; RESP 19; TEMP 98.1
== END 2018-12-02 02:27 | disposition home or self-care (01) ==
LOC: EC 22:20
DX: R30.0 Dysuria (principal); R50.9 Fever, unspecified; R05 Cough; R09.89 Other specified symptoms and signs involving the circulatory and respiratory systems; R09.82 Postnasal drip; Z88.0 Allergy status to penicillin; Z86.14 Personal history of Methicillin resistant Staphylococcus aureus infection
CPT/HCPCS: 36415; 71046; 80053; 81003; 81025; 83605; 85025; 87040; 87086; 87502; 96360; 96361; 99283

== ENCOUNTER → 2019-03-14 | Outpatient (CLI) | payer BC ==
--- NOTE | 2019-03-14 18:15 | CT ---
EXAMINATION TYPE: CT abdomen pelvis w con DATE OF EXAM: 03/14/2019 COMPARISON: HISTORY: RLQ pain CT DLP: 383.2 mGycm Automated exposure control for dose reduction was used. TECHNIQUE: Helical acquisition of images was performed from the lung bases through the pelvis. CONTRAST: Performed with Oral Contrast and with IV Contrast, patient injected with 100 mL of Isovue 300. FINDINGS: Lung bases are clear. There is no pleural effusion. Heart size is normal. Liver spleen stomach pancreas appear normal. Bile ducts are not dilated. There is no adrenal mass. Kidneys show satisfactory contrast opacification. There is no hydronephrosi s. Ureters are not dilated. There is no retroperitoneal adenopathy. Uterus is anteverted. The cul-de- sac is clear. There is no free fluid in the pelvis. There is 5.5 cm cyst in the pelvis on the right s sarath consistent with large ovarian cyst. There is no mesenteric edema. There is no ascites or free air. Appendix is not seen. There is no sign of thickened appendix. There is no evidence of a bowel obstruction. Lumbar vertebra have normal spac ing and alignment. Posterior elements are intact. Bony pelvis is intact. IMPRESSION: LARGE OVARIAN CYST. OTHERWISE NEGATIVE EXAM.
== END | disposition home or self-care (01) ==
LOC: RADCTMAIN 15:55
PROVIDERS: ATTEND Family Medicine
DX: N83.201 Unspecified ovarian cyst, right side (principal)
CPT/HCPCS: 74177; Q9967

== ENCOUNTER → 2019-04-18 | Outpatient (CLI) | payer BC | END | disposition home or self-care (01) | LOC: LABWHC1 13:57 | PROVIDERS: ATTEND Obstetrics & Gynecology | DX: O20.0 Threatened abortion (principal); Z3A.00 Weeks of gestation of pregnancy not specified | CPT/HCPCS: 36415; 84702 ==

== ENCOUNTER 2019-06-22 21:02 | Emergency (ER) | payer BC ==
[2019-06-22 21:07] VITALS: BP 122/87; PULSE 92; RESP 18; TEMP 98.1
[2019-06-22] MEDS ORDERED: METOCLOPRAMIDE 5 MG/ML 2 ML VIAL IVP STA (21:30)
[2019-06-22] MEDS ORDERED: diphenhydrAMINE 50 MG/ML 1 ML VIAL IVP STA (21:30)
[2019-06-22] MEDS ORDERED: SODIUM CHLORIDE 0.9% 1,000 ML IV STA (21:30)
[2019-06-22 21:50] LABS: Basophils # (A) 0.1 k/uL (0-0.2); Basophils % (A) 1 %; Eosinophils # (A) 0.1 k/uL (0-0.7); Eosinophils % (A) 1 %; HCT 40.9 % (34.0-46.0); Lymphocytes # (A) 0.8 k/uL (1.0-4.8); Lymphocytes % (A) 14 %; MCHC 34.1 g/dL (31.0-37.0); MCV 93.7 fL (80.0-100.0); Mean Platelet Volume 7.1; Monocytes # (A) 0.3 k/uL (0-1.0); Monocytes % (A) 6 %; Neutrophils # (A) 4.2 k/uL (1.3-7.7); Neutrophils % (A) 76 %; Platelet Count 155 k/uL (150-450); RBC 4.36 m/uL (3.80-5.40); RDW 12.4 % (11.5-15.5); WBC 5.5 k/uL (3.8-10.6)
[2019-06-22 22:00] LABS: ALT 13 U/L (4-34); AST 24 U/L (14-36); African American GFR (CKD) >90 (>60 ml/min/1.73 sqM); Albumin 3.5 g/dL (3.5-5.0); Alkaline Phosphatase 52 U/L (38-126); Anion Gap 6 mmol/L; Blood Urea Nitrogen 5 mg/dL (7-17); Calcium 8.4 mg/dL (8.4-10.2); Carbon Dioxide 25 mmol/L (22-30); Chloride 104 mmol/L (98-107); Glucose 85 mg/dL (74-99); Non-African American GFR(CKD) >90 (>60 ml/min/1.73 sqM); Potassium 3.4 mmol/L (3.5-5.1); Sodium 135 mmol/L (137-145); Total Bilirubin 0.3 mg/dL (0.2-1.3); Total Protein 6.2 g/dL (6.3-8.2)
[2019-06-22 22:08] LABS: Appearance,Urine Cloudy (Clear); Bacteria,Urine Occasional /hpf; Bilirubin,Urine Negative (Negative); Blood,Urine Trace (Negative); Color,Urine Yellow; Glucose,Urine (UA) Negative (Negative); Ketones,Urine 2+ (Negative); Leukocyte Esterase,Urine Trace (Negative); Mucus,Urine Many /hpf; Nitrite,Urine Negative (Negative); PH, Urine 5.5 (5.0-8.0); Protein,Urine Trace (Negative); RBC,Urine 2 /hpf (0-5); Specific Gravity,Urine 1.023 (1.001-1.035); Squamous Epithelial Cell,Urine 2 /hpf (0-4); Urobilinogen,Urine <2.0 mg/dL (<2.0); WBC,Urine 5 /hpf (0-5)
--- NOTE | 2019-06-22 22:32 | ED ---
Nausea/Vomiting/Diarrhea HPI - General Chief complaint: Nausea/Vomiting/Diarrhea Stated complaint: N/V/D Time Seen by Provider: 06/22/19 21:18 Source: patient Mode of arrival: ambulatory Limitations: no limitations - History of Present Illness Initial comments: Patient is a 33-year-old female, 14.5 weeks , presenting to the emergency department with a chief complaint of nausea vomiting diarrhea. Patient reports her symptoms began about 2 days ago and have not resolved. Patient reports multiple episodes of nonbilious, nonbloody vomiting. She also reports nonbloody diarrhea. She also reports some mild, generalized abdominal cramping. Denies increased urgency or frequency or dysuria. Patient states that she had a Doppler ultrasound about 2 weeks ago and everything was within normal limits. Patient denies any night sweats fevers or chills. Denies recent travels outside of the country. 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 Patient denies coughing, shortness of breath or chest pain or chest tightness. - Related Data Home Medications Medication Instructions Recorded Confirmed Bmw-Yypj-Ktyls Acid 1 cap PO HS 04/01/17 12/01/18 [-U Capsule (formulary)] Sulfamethox-Tmp 800-160Mg [Bactrim 1 tab PO BID 12/01/18 12/01/18 DS 800-160 mg] Allergies Allergy/AdvReac Type Severity Reaction Status Date / Time amoxicillin trihydrate Allergy Rash/Hives Verified 06/22/19 21:07 [From Augmentin] potassium clavulanate Allergy Rash/Hives Verified 06/22/19 21:07 [From Augmentin] Review of Systems ROS Statement: Those systems with pertinent positive or pertinent negative responses have been documented in the HPI. ROS Other: All systems not noted in ROS Statement are negative. Past Medical History Past Medical History: Asthma History of Any Multi-Drug Resistant Organisms: MRSA Date of last positivie culture/infection: 2008 MDRO Source:: lt arm Past Surgical History: No Surgical Hx Reported Past Psychological History: No Psychological Hx Reported Smoking Status: Never smoker Past Alcohol Use History: None Reported Past Drug Use History: None Reported General Exam Limitations: no limitations General appearance: alert, in no apparent distress Head exam: Present: atraumatic, normocephalic, normal inspection Eye exam: Present: normal appearance, PERRL, EOMI Pupils: Present: normal accommodation ENT exam: Present: normal exam, normal oropharynx, mucous membranes dry, TM's normal bilaterally, normal external ear exam Neck exam: Present: normal inspection, full ROM Respiratory exam: Present: normal lung sounds bilaterally Cardiovascular Exam: Present: regular rate, normal rhythm, normal heart sounds GI/Abdominal exam: Present: soft Extremities exam: Present: normal inspection, full ROM, normal capillary refill Back exam: Present: normal inspection, full ROM Neurological exam: Present: alert, oriented X3 Psychiatric exam: Present: normal affect, normal mood Skin exam: Present: warm, dry, intact, normal color Course Vital Signs 06/22/19 21:04 Temperature 98.1 F Pulse Rate 92 Respiratory 18 Rate Blood Pressure 122/87 O2 Sat by Pulse 98 Oximetry Medical Decision Making - Medical Decision Making Patient is a 33-year-old female, 14.5 weeks , presenting to the emergency department with a chief complaint of nausea vomiting diarrhea symptoms have been ongoing for about 3 days with some generalized abdominal cramping. CBC and CMP are unremarkable. UA does show +2 ketones. Patient given 1 L of saline, Reglan and Benadryl. heart tones are 150. HCG levels are at 73k which is appropriate for her gestational age. Patient advised to follow-up with primary care. Patient is not hypertensive and the rest of vitals are within normal limits. On reevaluation patient reports improvement in symptoms and the nausea has resolved. Strict return parameters were thoroughly discussed with patient was understanding and agreeable. Case discussed with physician. - Lab Data Result diagrams: 06/22/19 21:40 06/22/19 21:40 Lab Results 06/22/19 06/22/19 06/22/19 Range/Units 21:40 21:40 21:47 WBC 5.5 (3.8-10.6) k/uL RBC 4.36 (3.80-5.40) m/uL Hgb 14.0 (11.4-16.0) gm/dL Hct 40.9 (34.0-46.0) % MCV 93.7 (80.0-100.0) fL MCH 32.0 (25.0-35.0) pg MCHC 34.1 (31.0-37.0) g/dL RDW 12.4 (11.5-15.5) % Plt Count 155 (150-450) k/uL Neutrophils % 76 % Lymphocytes % 14 % Monocytes % 6 % Eosinophils % 1 % Basophils % 1 % Neutrophils # 4.2 (1.3-7.7) k/uL Lymphocytes # 0.8 L (1.0-4.8) k/uL Monocytes # 0.3 (0-1.0) k/uL Eosinophils # 0.1 (0-0.7) k/uL Basophils # 0.1 (0-0.2) k/uL Sodium 135 L (137-145) mmol/L Potassium 3.4 L (3.5-5.1) mmol/L Chloride 104 (98-107) mmol/L Carbon Dioxide 25 (22-30) mmol/L Anion Gap 6 mmol/L BUN 5 L (7-17) mg/dL Creatinine 0.44 L (0.52-1.04) mg/dL Est GFR (CKD-EPI)AfAm >90 (>60 ml/min/1.73 sqM) Est GFR (CKD-EPI)NonAf >90 (>60 ml/min/1.73 sqM) Glucose 85 (74-99) mg/dL Calcium 8.4 (8.4-10.2) mg/dL Total Bilirubin 0.3 (0.2-1.3) mg/dL AST 24 (14-36) U/L ALT 13 (4-34) U/L Alkaline Phosphatase 52 (38-126) U/L Total Protein 6.2 L (6.3-8.2) g/dL Albumin 3.5 (3.5-5.0) g/dL HCG, Quant 66923.9 mIU/mL Urine Color Yellow Urine Appearance Cloudy H (Clear) Urine pH 5.5 (5.0-8.0) Ur Specific [place] 1.023 (1.001-1.035) Urine Protein Trace H (Negative) Urine Glucose (UA) Negative (Negative) Urine Ketones 2+ H (Negative) Urine Blood Trace H (Negative) Urine Nitrite Negative (Negative) Urine Bilirubin Negative (Negative) Urine Urobilinogen <2.0 (<2.0) mg/dL Ur Leukocyte Esterase Trace H (Negative) Urine RBC 2 (0-5) /hpf Urine WBC 5 (0-5) /hpf Ur Squamous Epith Cells 2 (0-4) /hpf Urine Bacteria Occasional H (None) /hpf Urine Mucus Many H (None) /hpf Disposition Clinical Impression: Nausea vomiting and diarrhea Disposition: HOME SELF-CARE Condition: Stable Instructions (If sedation given, give patient instructions): Nutrition Tips for Relief of Diarrhea (ED) Additional Instructions: Please follow up with OB. Please return to emergency department if symptoms worsen. Is patient prescribed a controlled substance at d/c from ED?: No Referrals: Kavita Fong MD [Primary Care Provider] - 1-2 days Time of Disposition: 23:27
[2019-06-22 22:50] LABS: HCG,Quantitative Serum 73116.9 mIU/mL
== END 2019-06-22 23:54 | disposition home or self-care (01) ==
LOC: EC 21:02
DX: O21.9 Vomiting of pregnancy, unspecified (principal); O99.89 Other specified diseases and conditions complicating pregnancy, childbirth and the puerperium; R19.7 Diarrhea, unspecified; R82.4 Acetonuria; R10.84 Generalized abdominal pain; Z88.0 Allergy status to penicillin; Z86.14 Personal history of Methicillin resistant Staphylococcus aureus infection; Z3A.14 14 weeks gestation of pregnancy
CPT/HCPCS: 36415; 80053; 85025; 81001; 84702; 87086; 99284; 96374; 96375; 96361; J1200; J2765

== ENCOUNTER 2019-12-16 09:44 | Outpatient (CLI) | payer BC ==
[2019-12-16 11:05] VITALS: BP 134/87; PULSE 90; RESP 16; TEMP 98.7
--- NOTE | 2019-12-21 12:50 | P.MSEPDOC ---
Presenting Problems - Arrival Data Date of Arrival on Unit: 12/16/19 Time of Arrival on Unit: 09:44 Mode of Transport: Ambulatory - Complaint OB-Reason for Admission/Chief Complaint: Rule Out SROM Comment: clear fluid 729 Medical History - Information : 3 Para: 0 Term: 0 : 0 Abortions: Spontaneous or Elective: 2 Number of Living Children: 0 - Gestational Age Gestational Age by SUN (wks/days): 40 Weeks and 0 Days Review of Systems - Review of Systems Constitutional: No problems Breast: No problems ENT: No problems Cardiovascular: No problems Respiratory: No problems Gastrointestinal: No problems Genitourinary: No problems Musculoskeletal: No problems Neurological: No problems Skin: No problems Vital Signs - Temperature Temperature: 98.7 F Temperature Source: Temporal Artery Scan - Pulse Brachial Pulse Rate: 90 Pulse Assessment Method: Automatic Cuff - Respirations Respiratory Rate: 16 Oxygen Delivery Method: Room Air - Blood Pressure Right Arm Sitting Blood Pressure: 134/87 Blood Pressure Mean: 102 Blood Pressure Source: Automatic Cuff Medical Screen Scoring (Pre) - Cervical Exam Dilation: 1-3 cm = 1 Effacement: More than 50% = 2 Membranes: Intact - Uterine Contractions Frequency: > or = 36 weeks =2 Duration: > 40 seconds = 2 Intensity: N/A - Maternal Vital Signs Maternal Temperature: N/A Maternal Blood Pressure: N/A Signs of Preeclampsia: N/A Maternal Respirations: N/A - Maternal Trauma Maternal Trauma: N/A - Assessment - Baby A Baseline FHR: 125 Heart Rate - NICHD Category: Category I (Normal) = 0 NST: Reactive Position: N/A Station: N/A - Total Score - Baby A Total Score - Baby A: 7 - Total Score - Baby B Total Score - Baby B: 7 - Total Score - Baby C Total Score - Baby C: 7 - Level of Risk - Baby A Level of Risk - Baby A: Medium (6-9) - Level of Risk - Baby B Level of Risk - Baby B: Medium (6-9) - Level of Risk - Baby C Level of Risk - Baby C: Medium (6-9) Physician Notification (Pre) - Physician Notified Physician Notified Date: 12/16/19 Physician Notified Time: 10:56 New Order Received: Yes (discharge with instruction, has appt tomorrow) - Notification Comment Comment: contractions every 2-3, pt not feeling them, two amnisures both negative Disposition - Disposition OB Disposition: Triage, Discharge to home, Written follow up instructions reviewed Discharge Date: 12/16/19 Discharge Time: 11:00 I agree with the RN Medical Screening Exam: Yes Risk & Benefit of care provided described in d/c instruction: Yes Diagnosis: RELATED CONDITIONS, UNSPECIFIED, THIRD TRIMESTER
== END 2019-12-16 11:00 | disposition home or self-care (01) ==
LOC: FBPOP 09:44
PROVIDERS: ATTEND Obstetrics & Gynecology
DX: O26.93 Pregnancy related conditions, unspecified, third trimester (principal); Z3A.40 40 weeks gestation of pregnancy
CPT/HCPCS: 59025; 84112; 99213

== ENCOUNTER 2019-12-17 00:20 | Inpatient (IN) | payer BC ==
[2019-12-17] MEDS: LACTATED RINGERS 1,000 ML IV SCH ×3 (00:30→04:31)
[2019-12-17] MEDS ORDERED: LIDOCAINE 0.5% (PF) 5 MG/ML (50 ML SDV) SQ PRN (00:48)
[2019-12-17] MEDS ORDERED: TERBUTALINE 1 MG/ML VIAL SQ PRN (00:48)
[2019-12-17] MEDS ORDERED: METHYLERGONOVINE 0.2 MG/ML 1 ML AMP IM PRN (00:48)
[2019-12-17] MEDS ORDERED: OXYTOCIN 10 UNIT/ML 1 ML VIAL IM PRN (00:48)
[2019-12-17] MEDS ORDERED: CARBOPROST TROMETHAMINE 250 MCG/ML 1 ML AMP IM PRN (00:48)
[2019-12-17 01:05] LABS: Basophils % (A) 0 %; Eosinophils # (A) 0.1 k/uL (0-0.7); Eosinophils % (A) 1 %; HCT 37.9 % (34.0-46.0); HGB 12.5 gm/dL (11.4-16.0); Hypochromasia Slight; Lymphocytes % (A) 13 %; MCH 30.9 pg (25.0-35.0); MCV 93.7 fL (80.0-100.0); Mean Platelet Volume 8.8; Monocytes # (A) 0.6 k/uL (0-1.0); Monocytes % (A) 4 %; Neutrophils # (A) 12.7 k/uL (1.3-7.7); Neutrophils % (A) 81 %; Platelet Count 214 k/uL (150-450); RBC 4.05 m/uL (3.80-5.40); RDW 14.1 % (11.5-15.5); WBC 15.6 k/uL (3.8-10.6)
[2019-12-17] MEDS ORDERED: fentaNYL (PF) 50 MCG/ML 5 ML AMP ONE (02:38)
[2019-12-17] MEDS ORDERED: SODIUM CHLORIDE 0.9% 100 ML BAG ONE (02:38)
[2019-12-17] MEDS ORDERED: ROPIVACAINE 5MG/ML 20ML VIAL ONE (02:38)
[2019-12-17] MEDS ORDERED: AMPICILLIN 2,000 MG in SODIUM CHLORIDE 0.9% 100 ML IVPB STA (04:01)
[2019-12-17] MEDS ORDERED: AMPICILLIN 1,000 MG in SODIUM CHLORIDE 0.9% 50 ML IVPB SCH (08:02)
--- NOTE | 2019-12-17 09:00 | P.HPOB ---
History of Present Illness H&P Date: 12/17/19 Chief Complaint: 40 and one sevenths weeks, labor The patient is a 34-year-old 3 para 0020 admitted at 40 and one sevenths weeks as established by last menstrual period and confirmed by 8 week ultrasound. She is admitted in early active labor with all signs reassuring. She had probable spontaneous rupture of membranes last evening at approximately 1700 hrs with clear fluid. Her has been entirely uncomplicated though she is Rh- and received RhoGAM at approximately 28 weeks. Group B strep status is negative. As she may have somewhat prolonged rupture of membranes, antibody prophylaxis has been started. Obstetrical history: 3 para 0020 with current statistics listed in history present illness. EDC of 12/16/2019 was established by last menstrual period and confirmed by 8 week ultrasound she does carry a history of 2 previous miscarriages not requiring D&C. Laboratory workup demonstrates a blood type of A- with a negative antibody screen. Rubella status is immune. Remainder of laboratory workup is within normal limits. One hour Glucola was normal and group B strep status is negative. Pathologic history: Unremarkable with no history of any infections to include STDs. Review of Systems Review of systems is confined to history of present illness. Past Medical History Past Medical History: Asthma History of Any Multi-Drug Resistant Organisms: MRSA Date of last positivie culture/infection: 2008 MDRO Source:: lt arm Past Surgical History: No Surgical Hx Reported Past Psychological History: No Psychological Hx Reported Smoking Status: Never smoker Past Alcohol Use History: None Reported Past Drug Use History: None Reported Medications and Allergies Home Medications Medication Instructions Recorded Confirmed Type Pnv No.95/Ferrous Fum/Folic AC 1 tab PO ONCE 12/17/19 12/17/19 History [ Multivitamin Tablet] Allergies Allergy/AdvReac Type Severity Reaction Status Date / Time latex Allergy Rash/Hives Verified 12/17/19 00:27 potassium clavulanate Allergy Rash/Hives Verified 12/17/19 00:27 [From Augmentin] amoxicillin trihydrate AdvReac Unknown Verified 12/17/19 04:07 [From Augmentin] Childhood Exam Vital Signs Temp Pulse Resp BP Pulse Ox 12/17/19 00:31 98.1 F 90 20 137/85 97 Intake and Output 12/16/19 12/17/19 12/17/19 22:59 06:59 14:59 Output Total 600 Balance -600 Output: Urine 600 Other: Weight 77.111 kg In general, this is a well-developed, well-nourished white female in no acute distress. Her heart has a regular rhythm and rate without murmur. Her lungs are clear to auscultation bilaterally in all delaney. Her abdomen is gravid, nondistended, has normal active bowel sounds, is soft, nontender, and without any palpable masses aside from uterine fundus. Her extremities are without any cyanosis, clubbing, or edema and are nontender to palpation bilaterally. Digital cervical examination at the time of my presentation demonstrates her cervix to be anterior lip dilated eye with the vertex in presentation at +1 to +2 station. Results Result Diagrams: 12/17/19 00:56 Abnormal Lab Results - Last 24 Hours (Table) 12/17/19 Range/Units 00:56 WBC 15.6 H (3.8-10.6) k/uL Neutrophils # 12.7 H (1.3-7.7) k/uL Assessment and Plan (1) Active labor at term Current Visit: Yes Status: Acute Code(s): QDB9328 - SNOMED Code(s): 68805587 (2) Rh negative status during Current Visit: Yes Status: Acute Code(s): O26.899 - OTH RELATED CONDITIONS, UNSPECIFIED TRIMESTER; Z67.91 - UNSPECIFIED BLOOD TYPE, RH NEGATIVE SNOMED Code(s): 513737776 (3) Spontaneous rupture of membranes Current Visit: Yes Status: Acute Code(s): MYX0373 - SNOMED Code(s): 792789259 Plan: The patient is admitted for active management of labor. As there is some question as to when her membranes may have ruptured, antibody prophylaxis has been started. An epidural catheter has been placed for analgesia. She'll continue to have close maternal and surveillance and expectant management will be practice. I would anticipate normal spontaneous vaginal delivery shortly.
[2019-12-17] MEDS ORDERED: WITCH HAZEL 1 EACH MED..PAD TOPICAL PRN (10:42)
[2019-12-17] MEDS ORDERED: HYDROcodone/APAP 7.5-325MG 1 EACH TAB PO PRN (10:42)
[2019-12-17] MEDS ORDERED: ZOLPIDEM 5 MG TAB PO PRN (10:42)
[2019-12-17] MEDS ORDERED: ACETAMINOPHEN TAB 325 MG TAB PO PRN (10:42)
[2019-12-17] MEDS ORDERED: diphenhydrAMINE 50 MG/ML 1 ML VIAL IVP PRN ×2 (10:42)
[2019-12-17] MEDS ORDERED: diphenhydrAMINE 25 MG CAP PO PRN (10:42)
[2019-12-17] MEDS ORDERED: SIMETHICONE 80 MG CHEWABLE PO PRN (10:42)
[2019-12-17] MEDS ORDERED: IBUPROFEN 600 MG TAB PO PRN (10:42)
[2019-12-17] MEDS ORDERED: HYDROCORTISONE 2.5% RECTAL CREAM 30 GM TUBE RECTAL PRN (10:42)
[2019-12-17] MEDS ORDERED: HYDROcodone/APAP 5-325MG 1 EACH TAB PO PRN (10:42)
[2019-12-17] MEDS ORDERED: LANOLIN CREAM 5 GM TUBE TOPICAL PRN (10:42)
[2019-12-17] MEDS ORDERED: BENZOCAINE/MENTHOL SPRAY 1 GM/SPRAY AEROSOL TOPICAL PRN (10:42)
[2019-12-17] MEDS ORDERED: diphenhydrAMINE 50 MG CAP PO PRN (10:42)
[2019-12-17] MEDS ORDERED: OXYTOCIN 20 UNITS/1000 ML NS 1,000 ML IV SCH (10:45)
--- NOTE | 2019-12-17 10:46 | P.PROBDLV ---
Vaginal Delivery Note - . Vaginal Delivery Note: The patient is a 34-year-old 3 para 0020 was admitted at 40 and one sevenths weeks by good dating parameters with documented spontaneous rupture of membranes. Her has been uncomplicated though she is Rh- and received RhoGAM at 28 weeks. She did report probable spontaneous rupture of membranes around 1700 yesterday. As result, she had antibiotic prophylaxis started upon admission for unknown length of rupture. On labor and delivery, she made pro johnny on her own through the latent phase of labor and had an upper catheter placed for analgesia. She then progressed to complete after which time she pushed for approximately 2 hours to a normal spontaneous vaginal delivery of a viable 8 lbs. 15 oz. baby girl with Apgars of 8 at 1 minute and 9 at 5 minutes delivered in the left occiput anterior position. The placenta was delivered spontaneously, intact, and grossly normal with a grossly normal three-vessel cord inserted approximately 2-3 cm from the margin of the placental disc. There was a small second-degree midline episiotomy cut for delivery which extended to a partial third-degree tear with the laceration noted of the anterior capsule of the external anal sphincter. The capsule was closed with a [id number] stitch of 2-0 Vicryl. The remainder of the repair was closed in standard fashion using 3-0 chromic catgut without difficulty. There were no other significant lacerations of the perineum, vagina, or cervix. Estimated blood loss for the entire case was approximately 300 mL. There were no complications. All sponge, instrument, and needle counts were correct. Both mother and infant are resting comfortably in recovery.
[2019-12-17] MEDS: IBUPROFEN ORAL SUSP 100 MG/5 ML CUP PO PRN ×2 (11:53→20:02)
[2019-12-17] MEDS: SENNOSIDES-DOCUSATE SODIUM 1 EACH TAB PO SCH (19:32)
[2019-12-18] MEDS: IBUPROFEN ORAL SUSP 100 MG/5 ML CUP PO PRN ×2 (05:06→14:39)
--- NOTE | 2019-12-18 08:16 | P.PNOBGVD ---
Subjective - Subjective Interval history: Patient reports some difficulty with nursing at this time. Patient reports: Reports appetite normal, Reports voiding normally, Reports pain well controlled, Reports ambulating normally : doing well Objective - Latest Vital Signs Latest vital signs: Vital Signs Temp Pulse Resp BP Pulse Ox 12/18/19 05:45 98.0 F 89 16 109/69 92 L 12/18/19 02:00 97.7 F 92 16 133/90 96 12/17/19 22:40 98.4 F 12/17/19 20:00 103 H 16 120/84 96 12/17/19 15:43 98.8 F 102 H 18 117/73 12/17/19 12:45 98.9 F 94 18 125/75 12/17/19 12:15 98.2 F 82 18 148/77 12/17/19 11:45 99.1 F 108 H 18 142/76 12/17/19 11:15 96 18 118/70 12/17/19 11:00 98.7 F 102 H 18 122/74 12/17/19 10:45 97.6 F 94 18 139/78 Intake and Output 12/17/19 12/18/19 12/18/19 22:59 06:59 14:59 Other: # Voids 1 2 - Exam Extremities: Present: normal Abdomen: Present: normal appearance, soft Uterus: Present: normal, firm (The uterine fundus is tonic and nontender just below the umbilicus.) Assessment and Plan (1) Active labor at term Current Visit: Yes Status: Acute Code(s): [id number] - SNOMED Code(s): 56240074 (2) Rh negative status during Current Visit: Yes Status: Acute Code(s): O26.899 - OTH RELATED CONDITIONS, UNSPECIFIED TRIMESTER; Z67.91 - UNSPECIFIED BLOOD TYPE, RH NEGATIVE SNOMED Code(s): 165833959 (3) Spontaneous rupture of membranes Current Visit: Yes Status: Acute Code(s): PDV2759 - SNOMED Code(s): 925516675 (4) Normal spontaneous vaginal delivery Current Visit: Yes Status: Acute Code(s): O80 - ENCOUNTER FOR FULL-TERM UNCOMPLICATED DELIVERY SNOMED Code(s): 60465837 Plan: Continue routine care. She has requested help with breast-feeding and will be otherwise likely discharged home tomorrow pending. I have encouraged her to ambulate routinely.
[2019-12-18] MEDS: SENNOSIDES-DOCUSATE SODIUM 1 EACH TAB PO SCH ×2 (08:57→22:27)
[2019-12-18 16:59] VITALS: RESP 16
[2019-12-19 07:55] VITALS: BP 121/81; PULSE 81; TEMP 97.6
--- NOTE | 2019-12-19 08:48 | P.DS ---
Providers Date of admission: 12/17/19 00:40 Expected date of discharge: 12/19/19 Attending physician: Mahesh Wren Primary care physician: Stated None - Discharge Diagnosis(es) (1) Active labor at term Current Visit: Yes Status: Acute (2) Normal spontaneous vaginal delivery Current Visit: Yes Status: Acute (3) Perineal laceration during delivery Current Visit: Yes Status: Acute (4) Rh negative status during Current Visit: Yes Status: Acute (5) Spontaneous rupture of membranes Current Visit: Yes Status: Acute Hospital Course: This is a pleasant 34-year-old 3 now para 10-1 that was admitted to labor and delivery at 40 and one sevenths weeks with spontaneous rupture of membranes and contractions. Patient had been receiving routine care which has been essentially uncomplicated. For full details on this patient please see dictated history and physical. Patient progressed through labor eventually becoming uncomfortable and requesting epidural placement. Patient progressed to complete began pushing and had a normal spontaneous vaginal deliv cherry of a viable female weight of 8 lbs. 15 oz. and Apgars of 8 and 9 at one and 5 minutes respectively. Patient did have a second degree midline episiotomy during delivery which was repaired in the usual fashion. Patient's course has been essentially uneventful. On this day #2 she is ambulating and voiding without difficulty she is tolerating a regular diet without nausea or vomiting. She states her pain is well-controlled and she does wish discharge home. Patient Condition at Discharge: Good Plan - Discharge Summary New Discharge Prescriptions: No Action Pnv No.95/Ferrous Fum/Folic AC [ Multivitamin Tablet] 1 tab PO ONCE Discharge Medication List Pnv No.95/Ferrous Fum/Folic AC [ Multivitamin Tablet] 1 tab PO ONCE 12/17/19 [History] Follow up Appointment(s)/Referral(s): Mahesh Wren MD [STAFF PHYSICIAN] - 6 Weeks Patient Instructions/Handouts: Vaginal Delivery (DC), Vaginal Delivery (GEN) Discharge Disposition: HOME SELF-CARE
[2019-12-19] MEDS: IBUPROFEN ORAL SUSP 100 MG/5 ML CUP PO PRN (14:21)
[2019-12-19] MEDS: SENNOSIDES-DOCUSATE SODIUM 1 EACH TAB PO SCH (16:19)
== END 2019-12-19 16:10 | disposition home or self-care (01) | DRG 807 ==
LOC: FBPOP 00:20 → 4FBP 00:40
PROVIDERS: ADMIT Obstetrics & Gynecology Obstetrics; ATTEND Obstetrics & Gynecology
PROC: 10E0XZZ Delivery of Products of Conception, External Approach (ICD-10-PCS; principal; 2019-12-17)
PROC: 0KQM0ZZ Repair Perineum Muscle, Open Approach (ICD-10-PCS; principal; 2019-12-17)
PROC: 3E0R3BZ Introduction of Anesthetic Agent into Spinal Canal, Percutaneous Approach (ICD-10-PCS; principal; 2019-12-17)
PROC: 0W8NXZZ Division of Female Perineum, External Approach (ICD-10-PCS; principal; 2019-12-17)
PROC: 00HU33Z Insertion of Infusion Device into Spinal Canal, Percutaneous Approach (ICD-10-PCS; principal; 2019-12-17)
DX: O26.893 Other specified pregnancy related conditions, third trimester (principal); Z37.0 Single live birth; O70.20 Third degree perineal laceration during delivery, unspecified; Z3A.40 40 weeks gestation of pregnancy; Z67.11 Type A blood, Rh negative; Z86.14 Personal history of Methicillin resistant Staphylococcus aureus infection; Z88.1 Allergy status to other antibiotic agents; Z91.040 Latex allergy status; Z87.09 Personal history of other diseases of the respiratory system
CPT/HCPCS: 59025; 84112; 85025; 86850; 86870; 86880; 86900; 86901; 86902; 99213

== ENCOUNTER → 2020-07-15 | Outpatient (CLI) | payer BC ==
--- NOTE | 2020-07-15 08:55 | US ---
EXAMINATION TYPE: US axilla LT DATE OF EXAM: 07/15/2020 COMPARISON: NONE CLINICAL HISTORY: R22.9 Left axilla mass. Patient states she has has a palpable lump in her left axil la for 6 months Normal appearing lymph node visualized in the area of the patient's palpable measuring 1.5 x 0.7 x 0. 6 cm IMPRESSION: 1. Left axillary lymph node at the palpable abnormality.
== END | disposition home or self-care (01) ==
LOC: RADUSWWP 08:15
PROVIDERS: ATTEND Family Medicine
DX: R22.9 Localized swelling, mass and lump, unspecified (principal)

== ENCOUNTER 2021-12-26 02:05 | Inpatient (IN) | payer BC ==
[2021-12-26] MEDS ORDERED: METHYLERGONOVINE 0.2 MG/ML 1 ML AMP IM PRN (02:27)
[2021-12-26] MEDS ORDERED: CARBOPROST TROMETHAMINE 250 MCG/ML 1 ML AMP IM PRN (02:27)
[2021-12-26] MEDS ORDERED: TERBUTALINE 1 MG/ML VIAL SQ PRN (02:27)
[2021-12-26] MEDS ORDERED: LIDOCAINE 0.5% (PF) 5 MG/ML (50 ML SDV) SQ PRN (02:27)
[2021-12-26] MEDS ORDERED: OXYTOCIN 10 UNIT/ML 1 ML VIAL IM PRN (02:27)
[2021-12-26] MEDS: LACTATED RINGERS 1,000 ML IV SCH ×3 (02:53→06:41)
[2021-12-26 03:01] LABS: Basophils % (A) 0 %; Eosinophils # (A) 0.1 k/uL (0-0.7); Eosinophils % (A) 1 %; HCT 39.6 % (34.0-46.0); HGB 13.1 gm/dL (11.4-16.0); Lymphocytes # (A) 1.9 k/uL (1.0-4.8); Lymphocytes % (A) 15 %; MCH 32.2 pg (25.0-35.0); MCHC 33.1 g/dL (31.0-37.0); MCV 97.2 fL (80.0-100.0); Mean Platelet Volume 8.1; Monocytes # (A) 0.5 k/uL (0-1.0); Monocytes % (A) 4 %; Neutrophils # (A) 9.4 k/uL (1.3-7.7); Neutrophils % (A) 78 %; Platelet Count 204 k/uL (150-450); RBC 4.07 m/uL (3.80-5.40); RDW 14.1 % (11.5-15.5); WBC 12.1 k/uL (3.8-10.6)
[2021-12-26] MEDS ORDERED: ROPIVACAINE 100 MG, fentaNYL (PF). 200 MCG in SODIUM CHLORIDE 0.9% 76 ML EPIDURAL ONE (03:55)
[2021-12-26] MEDS ORDERED: OXYTOCIN 30 UNITS/500 ML NS 30 UNIT in SALINE 1 500ML.BAG IV SCH (06:45)
[2021-12-26] MEDS ORDERED: BENZOCAINE/MENTHOL SPRAY 1 GM/SPRAY AEROSOL TOPICAL PRN (08:16)
[2021-12-26] MEDS ORDERED: diphenhydrAMINE 50 MG CAP PO PRN (08:16)
[2021-12-26] MEDS ORDERED: diphenhydrAMINE 50 MG/ML 1 ML VIAL IVP PRN ×2 (08:16)
[2021-12-26] MEDS ORDERED: Rhogam IMMUNE GLOBULIN 1,500 UNIT/1 ML IM ONE (08:16)
[2021-12-26] MEDS ORDERED: ACETAMINOPHEN TAB 325 MG TAB PO PRN (08:16)
[2021-12-26] MEDS ORDERED: SIMETHICONE 80 MG CHEWABLE PO PRN (08:16)
[2021-12-26] MEDS ORDERED: ZOLPIDEM 5 MG TAB PO PRN (08:16)
[2021-12-26] MEDS ORDERED: LANOLIN CREAM 5 GM TUBE TOPICAL PRN (08:16)
[2021-12-26] MEDS ORDERED: HYDROCORTISONE 2.5% RECTAL CREAM 30 GM TUBE RECTAL PRN (08:16)
[2021-12-26] MEDS ORDERED: IBUPROFEN 600 MG TAB PO PRN (08:16)
[2021-12-26] MEDS ORDERED: diphenhydrAMINE 25 MG CAP PO PRN (08:16)
--- NOTE | 2021-12-26 10:21 | P.PROBDLV ---
Vaginal Delivery Note - . Vaginal Delivery Note: Findings: Viable male infant delivered at 804, weight of 9 lbs. 6 oz., Apgars of 8 and 9 at one and 5 minutes resect away. This is a 36 yo at 39 6/7 weeks that presents to labor and delivery in active labor. Patient was noted to be 5-6 cm upon admission, denied loss of fluid or vaginal bleeding. Patient became uncomfortable labor and did request epidural placement. Patient had an epidural placed by the anesthesia without difficulty. Patient was noted to be 8-9 cm therefore amniotomy was performed and clear fluid was obtained. Patient was noted to be having irregular contractions at that time therefore Pitocin augmentation of labor was begun. Patient progressed to complete was placed in a modified lithotomy position and with excellent maternal effort had a normal spontaneous vaginal delivery of a viable male infant at 804, weight of 9 lbs. 6 oz., Apgars of 8 and 9 at one and 5 minutes respectively. A loose body cord was delivered through. After two-minute delayed the umbo cord was doubly clamped and cut and the was handed to the maternal abdomen. Spontaneous cry was noted. The placenta was delivered spontaneously intact with a three-vessel cord being noted. On inspection the patient's vaginal vault a second degree midline laceration was appreciated this was instilled with lidocaine and repaired in the usual fashion with 3-0 Rapide. Hemostasis was appreciated after repair was complete. Rectal exam was performed and found to be normal in nature. Uterus is noted be firm and below the umbilicus. Estimated blood loss 100 mL. Patient and tolerated delivery well and are resting comfortably.
--- NOTE | 2021-12-26 10:23 | P.HPOB ---
History of Present Illness H&P Date: 12/26/21 Chief Complaint: IUP @ 39 6/7 weeks, labor This is a 36-year-old that presented to labor and delivery at 39 and 6/7 weeks with complaints of regular painful contractions. Patient states she started tasneem around 10 PM last evening where they became more regular and she decided to come to the hospital. Patient was noted to be 5-6 cm upon admission. Patient has been receiving routine care which has been essentially uncomplicated. Patient does have a history of asthma which has been well controlled throughout the . Patient has a known blood type of A-, rubella status immune, B surface antigen negative, HIV negative, RPR is nonreactive, group beta strep cultures negative. Review of Systems Constitutional: Denies chills, Denies fatigue, Denies fever Ears, nose, mouth and throat: Denies headache Respiratory: Denies dyspnea Gastrointestinal: Denies constipation, Denies diarrhea, Denies nausea, Denies vomiting Genitourinary: Reports Past Medical History Past Medical History: Asthma History of Any Multi-Drug Resistant Organisms: MRSA Date of last positivie culture/infection: 2008 MDRO Source:: lt arm Past Surgical History: No Surgical Hx Reported Past Psychological History: No Psychological Hx Reported Smoking Status: Never smoker Past Alcohol Use History: None Reported Past Drug Use History: None Reported - Past Family History Father Family Medical History: Diabetes Mellitus, Hypertension Medications and Allergies Home Medications Medication Instructions Recorded Confirmed Type Pnv No.95/Ferrous Fum/Folic AC 1 tab PO ONCE 12/17/19 12/26/21 History [ Multivitamin Tablet] Allergies Allergy/AdvReac Type Severity Reaction Status Date / Time latex Allergy Rash/Hives Verified 12/26/21 02:12 potassium clavulanate Allergy Rash/Hives Verified 12/26/21 02:12 [From Augmentin] amoxicillin trihydrate AdvReac Unknown Verified 12/26/21 02:12 [From Augmentin] Childhood Exam Osteopathic Statement: *. No significant issues noted on an osteopathic structural exam other than those noted in the History and Physical/Consult. Vital Signs Temp Pulse Resp BP Pulse Ox 12/26/21 02:38 96.7 F L 95 16 130/88 98 12/26/21 02:12 96.6 F L 95 16 130/88 98 Intake and Output 0712/25/21 12/26/21 14:59 22:59 06:59 Intake Total 2000 Output Total 500 Balance 1500 Intake: IV 1999 Output: Urine 500 Other: Weight 81.647 kg Targeted physical exam is performed and state in general this a well-nourished well-developed female in no acute distress, breathing is noted to be nonlabored, heart has a regular rate and rhythm, abdomen is gravid and appropriate for gestational age, on cervical exam she is 9/100/-1 station with a bulging bag of water, amniotomy is performed and clear fluid was obtained. Category 1 heart tones are noted and she is tasneem every 6-8 minutes. Results Result Diagrams: 12/26/21 02:50 Abnormal Lab Results - Last 24 Hours (Table) 12/26/21 Range/Units 02:50 WBC 12.1 H (3.8-10.6) k/uL Neutrophils # 9.4 H (1.3-7.7) k/uL Assessment and Plan (1) Active labor at term Current Visit: No Status: Acute Code(s): JIR8021 - SNOMED Code(s): 10549032 (2) Rh negative status during Current Visit: No Status: Acute Code(s): O26.899 - OTH RELATED CONDITIONS, UNSPECIFIED TRIMESTER; Z67.91 - UNSPECIFIED BLOOD TYPE, RH NEGATIVE SNOMED Code(s): 241469012 Plan: 36-year-old at 39-6/7 weeks that presents to labor and delivery in active labor. Patient is admitted to labor and delivery, soon after admission she did request epidural. Epidural was placed without difficulty by the anesthesia department. Anticipate spontaneous vaginal delivery.
[2021-12-26 17:38] VITALS: RESP 16
[2021-12-26] MEDS: SENNOSIDES-DOCUSATE SODIUM 1 EACH TAB PO SCH (19:31)
[2021-12-26] MEDS ORDERED: IBUPROFEN ORAL SUSP 100 MG/5 ML CUP PO ONE (19:52)
[2021-12-26] MEDS: IBUPROFEN ORAL SUSP 2,400 MG/120 ML BOTTLE PO PRN (20:30)
[2021-12-27 06:44] LABS: Basophils % (A) 0 %; Eosinophils # (A) 0.1 k/uL (0-0.7); Eosinophils % (A) 1 %; HCT 33.7 % (34.0-46.0); HGB 10.9 gm/dL (11.4-16.0); Lymphocytes # (A) 1.4 k/uL (1.0-4.8); Lymphocytes % (A) 13 %; MCH 31.5 pg (25.0-35.0); MCHC 32.2 g/dL (31.0-37.0); MCV 97.9 fL (80.0-100.0); Mean Platelet Volume 8.1; Monocytes # (A) 0.5 k/uL (0-1.0); Monocytes % (A) 5 %; Neutrophils # (A) 8.7 k/uL (1.3-7.7); Neutrophils % (A) 81 %; Platelet Count 152 k/uL (150-450); RBC 3.44 m/uL (3.80-5.40); WBC 10.8 k/uL (3.8-10.6)
[2021-12-27] MEDS: IBUPROFEN ORAL SUSP 2,400 MG/120 ML BOTTLE PO PRN (08:07)
[2021-12-27 08:12] VITALS: BP 128/78; PULSE 79; TEMP 98.7
[2021-12-27] MEDS: SENNOSIDES-DOCUSATE SODIUM 1 EACH TAB PO SCH (08:54)
--- NOTE | 2021-12-27 12:32 | P.DS ---
Providers Date of admission: 12/26/21 02:23 Expected date of discharge: 12/27/21 Attending physician: Mahesh Wren Primary care physician: Stated None - Discharge Diagnosis(es) (1) Active labor at term Current Visit: No Status: Acute (2) Rh negative status during Current Visit: No Status: Acute (3) Perineal laceration during delivery Current Visit: No Status: Acute (4) Spontaneous rupture of membranes Current Visit: No Status: Acute Hospital Course: This is a 36-year-old G4 now P202 at 39-6/7 weeks in active labor. Patient was noted to be 5-6 cm upon admission. Patient had been receiving routine care which is been essentially uncomplicated. Patient was uncomfortable and did request epidural placement after admission. Patient progressed to complete began pushing and had a normal spontaneous vaginal delivery of a viable female at 804, weight of 9 lbs. 6 oz. Patient did sustain a secondary midline laceration which was repaired in the usual fashion. Patient's post course has been uneventful. On this day #1 she is ambulating and voiding without difficulty. She is tolerating regular diet without nausea or vomiting. She states her pain is well-controlled. Her lochia is moderate. She denies concerns. She would like discharge home at 24 hours if possible. Patient Condition at Discharge: Good Plan - Discharge Summary New Discharge Prescriptions: No Action Pnv No.95/Ferrous Fum/Folic AC [ Multivitamin Tablet] 1 tab PO ONCE Discharge Medication List Pnv No.95/Ferrous Fum/Folic AC [ Multivitamin Tablet] 1 tab PO ONCE 12/17/19 [History] Follow up Appointment(s)/Referral(s): Mahesh Wren MD [STAFF PHYSICIAN] - 6 Weeks Patient Instructions/Handouts: Vaginal Delivery (DC), Vaginal Delivery (GEN) Discharge Disposition: HOME SELF-CARE
== END 2021-12-27 14:28 | disposition home or self-care (01) | DRG 807 ==
LOC: FBPOP 02:05 → 4FBP 02:23
PROVIDERS: ADMIT Obstetrics & Gynecology Obstetrics; ATTEND Obstetrics & Gynecology
PROC: 10E0XZZ Delivery of Products of Conception, External Approach (ICD-10-PCS; principal; 2021-12-26)
PROC: 0KQM0ZZ Repair Perineum Muscle, Open Approach (ICD-10-PCS; 2021-12-26)
PROC: 10907ZC Drainage of Amniotic Fluid, Therapeutic from Products of Conception, Via Natural or Artificial Opening (ICD-10-PCS; 2021-12-26)
PROC: 4A0HXCZ Measurement of Products of Conception, Cardiac Rate, External Approach (ICD-10-PCS; 2021-12-26)
PROC: 3E033VJ Introduction of Other Hormone into Peripheral Vein, Percutaneous Approach (ICD-10-PCS; 2021-12-26)
DX: O69.81X0 Labor and delivery complicated by cord around neck, without compression, not applicable or unspecified (principal); Z37.0 Single live birth; O70.1 Second degree perineal laceration during delivery; O26.893 Other specified pregnancy related conditions, third trimester; J45.909 Unspecified asthma, uncomplicated; O99.52 Diseases of the respiratory system complicating childbirth; Z3A.39 39 weeks gestation of pregnancy; Z67.91 Unspecified blood type, Rh negative; Z82.49 Family history of ischemic heart disease and other diseases of the circulatory system; Z83.3 Family history of diabetes mellitus; Z91.040 Latex allergy status; Z88.1 Allergy status to other antibiotic agents; Z88.8 Allergy status to other drugs, medicaments and biological substances; Z86.14 Personal history of Methicillin resistant Staphylococcus aureus infection
CPT/HCPCS: 59025; 85025; 85461; 86850; 86900; 86901; 99213

== ENCOUNTER → 2024-06-05 | Outpatient (CLI) | payer BC ==
--- NOTE | 2024-06-05 13:28 | US ---
EXAMINATION TYPE: US pelvic complete DATE OF EXAM: 06/05/2024 COMPARISON: CT: 03/14/19, pelvic ultrasound in 2017, transvaginal ultrasound 06/20/2016 CLINICAL INDICATION: Female, 38 years old with history of R10.2 OVARIAN CYST; ovarian cyst. TECHNIQUE: Transabdominal (TA). FINDINGS: Date of LMP: 05/23/24 EXAM MEASUREMENTS: Uterus: 9.3 x 7.1 x 4.6 cm Endometrial Stripe: 0.9 cm Right Ovary: 3.0 x 2.8 x 3.1 cm Left Ovary: 4.0 x 2.4 x 2.8 cm 1. Uterus: Anteverted wnl 2. Endometrium: wnl 3. Right Ovary: multiple follicles seen 4. Left Ovary: multiple follicles seen 5. Bilateral Adnexa: wnl 6. Posterior cul-de-sac: wnl Unremarkable anteverted uterus. Endometrium is within normal limits. Both ovaries appear unremarkable with follicles demonstrated. Previously seen left ovarian hemorrhagic cyst no longer visualized and resolved. Previously seen right ovarian cyst is no longer visualized and has resolved. No free fluid. IMPRESSION: No ultrasound evidence for acute pelvic process. Resolution of previously seen ovarian cy [facility], , 06/05/2024 1:25 PM
== END | disposition home or self-care (01) ==
LOC: RADUSWWP 12:56
PROVIDERS: ATTEND Family Medicine
DX: R10.2 Pelvic and perineal pain (principal); Z87.42 Personal history of other diseases of the female genital tract
CPT/HCPCS: 76856